=== PATIENT | female | born 1950 | race Caucasian/White ===

== ENCOUNTER 2019-05-08 05:38 | Inpatient (IN) ==
[2019-05-08] MEDS ORDERED: HEPARIN/NACL 0.9% 2 UNITS/ML 1,000 ML IV ONE (06:41)
[2019-05-08] MEDS ORDERED: LIDOCAINE 1% 20 ML VIAL ONE (06:41)
[2019-05-08] MEDS: SODIUM CHLORIDE 0.9% 1,000 ML IV SCH (07:00)
[2019-05-08] MEDS ORDERED: DIAZEPAM 5 MG TABLET ONE (08:12)
[2019-05-08] MEDS ORDERED: diphenhydrAMINE CAP 25 MG CAPSULE ONE (08:12)
[2019-05-08] MEDS ORDERED: POTASSIUM CHLORIDE RIDER 10 MEQ in PREMIX 1 EACH IV PRN (08:17)
[2019-05-08] MEDS ORDERED: ASPIRIN 325 MG TABLET PO ONE (08:17)
[2019-05-08] MEDS ORDERED: DIAZEPAM 5 MG TABLET PO ONE (08:17)
[2019-05-08] MEDS ORDERED: MAGNESIUM SULF RIDER 2 GM in PREMIX 1 EACH IV PRN (08:17)
[2019-05-08] MEDS ORDERED: diphenhydrAMINE CAP 25 MG CAPSULE PO ONE (08:17)
[2019-05-08] MEDS ORDERED: fentaNYL 100 MCG/2 ML VIAL ONE (08:30)
[2019-05-08] MEDS ORDERED: MIDAZOLAM 2 MG/2 ML VIAL ONE ×2 (08:30→10:25)
[2019-05-08 08:38] LABS: Albumin 3.2 G/DL (3.4-5.0); Bilirubin,Total 0.7 MG/DL (0.2-1.0); Calcium 8.3 MG/DL (8.5-10.1); Total Protein 8.3 G/DL (6.4-8.3)
[2019-05-08 08:57] LABS: Basophils # 0.1 10*3/uL (0.0-0.2); Basophils % 0.8 % (0.0-0.8); Eosinophils # 0.4 10*3/uL (0.0-0.87); Eosinophils % 3.2 % (0.00-10.9); Hematocrit 33.1 VOL% (35.7-47.0); Hemoglobin 9.9 GM/DL (12.0-16.0); Immature Granulocytes % 0.6 %; Immature Granulocytes Absolute 0.07 #; Lymphocytes # 1.1 10*3/uL (1.4-4.0); Lymphocytes % 9.4 % (21.3-54.2); Mean Corpuscular HGB Conc 29.9 GM/DL (32-36); Mean Corpuscular Volume 91.4 FL (87-102); Monocytes % 11.6 % (1.7-12.7); Neutrophils % 74.4 % (38.7-73.9); Platelet Count 210 T/CUMM (130-400); Red Blood Count 3.62 MC/CUMM (3.8-5.5); Red Cell Distribution Width 16.8 % (9.3-17.3); White Blood Count 11.4 T/CUMM (4-12)
[2019-05-08 09:01] LABS: INR 1.1; PT Patient Result 11.4 SECS (9.6-12.2)
[2019-05-08] MEDS ORDERED: ALBUTEROL 2.5 MG/3 ML NEB RESP TX PRN (11:19)
[2019-05-08] MEDS ORDERED: ZALEPLON 5 MG CAPSULE PO PRN (11:20)
[2019-05-08] MEDS ORDERED: ACETAMINOPHEN/CODEINE 300-30 MG TABLET PO PRN (11:20)
[2019-05-08] MEDS ORDERED: ONDANSETRON 4 MG/2 ML VIAL IV PRN (11:20)
[2019-05-08] MEDS ORDERED: ACETAMINOPHEN 325 MG TABLET PO PRN (11:20)
[2019-05-08] MEDS ORDERED: GLUCAGON 1 MG VIAL IM PRN (11:22)
[2019-05-08] MEDS ORDERED: DEXTROSE 50% 25 GM/50 ML VIAL IV PRN (11:22)
[2019-05-08] MEDS: INSULIN REGULAR 100 UNIT/ML SUBCUT SCH ×3 (13:59→22:28)
[2019-05-08] MEDS: INSULIN LISPRO 100 UNIT/ML SUBCUT SCH ×2 (15:05→17:54)
[2019-05-08] MEDS: hydrALAZINE 25 MG TABLET PO SCH ×2 (16:20→22:27)
[2019-05-08] MEDS ORDERED: FUROSEMIDE 40 MG TABLET PO SCH (21:00)
[2019-05-08] MEDS: INSULIN GLARGINE 100 UNIT/ML SUBCUT SCH (21:55)
[2019-05-08] MEDS: EZETIMIBE 10 MG TABLET PO SCH (21:55)
[2019-05-08] MEDS: levETIRAcetam 500 MG TABLET PO SCH (21:55)
[2019-05-08] MEDS: sitaGLIPtin 100 MG TABLET PO SCH (21:55)
[2019-05-08] MEDS: carvediloL 25 MG TABLET PO SCH (22:27)
[2019-05-09 05:43] LABS: Basophils # 0.1 10*3/uL (0.0-0.2); Basophils % 0.9 % (0.0-0.8); Eosinophils # 0.2 10*3/uL (0.0-0.87); Eosinophils % 2.3 % (0.00-10.9); Hematocrit 33.8 VOL% (35.7-47.0); Immature Granulocytes % 0.6 %; Immature Granulocytes Absolute 0.06 #; Lymphocytes # 0.7 10*3/uL (1.4-4.0); Mean Corpuscular HGB Conc 29.6 GM/DL (32-36); Mean Corpuscular Volume 93.1 FL (87-102); Mean Platelet Volume 11.9 FL (9.6-12.0); Monocytes % 10.2 % (1.7-12.7); Platelet Count 184 T/CUMM (130-400); Red Blood Count 3.63 MC/CUMM (3.8-5.5); Red Cell Distribution Width 16.7 % (9.3-17.3); White Blood Count 10.1 T/CUMM (4-12)
[2019-05-09] MEDS: LEVOTHYROXINE 100 MCG TABLET PO SCH (05:55)
[2019-05-09 06:12] LABS: Calcium 8.3 MG/DL (8.5-10.1); Osmolality,Calculated 285.4 MOS/KG (273-304); Risk Ratio 2.68; Thyroid Stimulating Hormone 4.45 uIU/ml (0.358-3.74); VLDL CHOLESTEROL 10.6 MG/DL
[2019-05-09] MEDS ORDERED: FUROSEMIDE 40 MG/4 ML VIAL IV ONE (08:49)
[2019-05-09] MEDS: INSULIN REGULAR 100 UNIT/ML SUBCUT SCH ×4 (09:08→22:04)
[2019-05-09] MEDS: OLMESARTAN 20 MG TABLET PO SCH (09:09)
[2019-05-09] MEDS: POTASSIUM CHLORIDE 8 MEQ CAPSULE PO SCH (09:09)
[2019-05-09] MEDS: INSULIN LISPRO 100 UNIT/ML SUBCUT SCH ×3 (09:09→16:22)
[2019-05-09] MEDS: ASCORBIC ACID 500 MG TABLET PO SCH (09:10)
[2019-05-09] MEDS: carvediloL 25 MG TABLET PO SCH (09:10)
[2019-05-09] MEDS: amLODIPine 5 MG TABLET PO SCH (09:10)
[2019-05-09] MEDS: ATORVASTATIN 20 MG TABLET PO SCH (09:10)
[2019-05-09] MEDS: hydrALAZINE 25 MG TABLET PO SCH ×3 (09:10→22:04)
[2019-05-09] MEDS: ASPIRIN 325 MG TABLET PO SCH (09:10)
[2019-05-09] MEDS: levETIRAcetam 500 MG TABLET PO SCH ×2 (09:16→20:58)
[2019-05-09] MEDS: SODIUM CHLORIDE 0.9% 1,000 ML IV SCH ×3 (09:16→16:20)
[2019-05-09] MEDS: FUROSEMIDE 40 MG/4 ML VIAL IV SCH (16:21)
[2019-05-09] MEDS: EZETIMIBE 10 MG TABLET PO SCH (20:53)
[2019-05-09] MEDS: sitaGLIPtin 100 MG TABLET PO SCH (20:53)
[2019-05-09] MEDS: carvediloL 12.5 MG TABLET PO SCH (22:04)
[2019-05-09] MEDS: INSULIN GLARGINE 100 UNIT/ML SUBCUT SCH (22:07)
[2019-05-10] MEDS: LEVOTHYROXINE 100 MCG TABLET PO SCH (06:18)
[2019-05-10 07:57] LABS: Basophils # 0.1 10*3/uL (0.0-0.2); Basophils % 0.6 % (0.0-0.8); Eosinophils # 0.4 10*3/uL (0.0-0.87); Eosinophils % 4.5 % (0.00-10.9); Hematocrit 33.2 VOL% (35.7-47.0); Hemoglobin 9.8 GM/DL (12.0-16.0); Immature Granulocytes % 0.6 %; Immature Granulocytes Absolute 0.05 #; Lymphocytes # 1.2 10*3/uL (1.4-4.0); Lymphocytes % 14.1 % (21.3-54.2); Mean Corpuscular HGB Conc 29.5 GM/DL (32-36); Mean Platelet Volume 12.5 FL (9.6-12.0); Monocytes % 11.2 % (1.7-12.7); Platelet Count 197 T/CUMM (130-400); Red Blood Count 3.61 MC/CUMM (3.8-5.5); Red Cell Distribution Width 16.5 % (9.3-17.3); White Blood Count 8.4 T/CUMM (4-12)
[2019-05-10 08:10] LABS: Osmolality,Calculated 285.4 MOS/KG (273-304)
[2019-05-10] MEDS: INSULIN LISPRO 100 UNIT/ML SUBCUT SCH ×3 (09:07→18:04)
[2019-05-10] MEDS: INSULIN REGULAR 100 UNIT/ML SUBCUT SCH ×4 (09:07→21:14)
[2019-05-10] MEDS: levETIRAcetam 500 MG TABLET PO SCH ×2 (09:08→21:15)
[2019-05-10] MEDS: amLODIPine 5 MG TABLET PO SCH (09:09)
[2019-05-10] MEDS: POTASSIUM CHLORIDE 8 MEQ CAPSULE PO SCH (09:09)
[2019-05-10] MEDS: FUROSEMIDE 40 MG/4 ML VIAL IV SCH ×2 (09:09→17:40)
[2019-05-10] MEDS: OLMESARTAN 20 MG TABLET PO SCH (09:09)
[2019-05-10] MEDS: ASPIRIN 325 MG TABLET PO SCH (09:09)
[2019-05-10] MEDS: hydrALAZINE 25 MG TABLET PO SCH ×3 (09:09→21:14)
[2019-05-10] MEDS: ATORVASTATIN 20 MG TABLET PO SCH (09:09)
[2019-05-10] MEDS: carvediloL 12.5 MG TABLET PO SCH ×2 (10:09→21:14)
[2019-05-10] MEDS: ASCORBIC ACID 500 MG TABLET PO SCH (10:09)
[2019-05-10] MEDS: EZETIMIBE 10 MG TABLET PO SCH (21:15)
[2019-05-10] MEDS: INSULIN GLARGINE 100 UNIT/ML SUBCUT SCH (21:15)
[2019-05-10] MEDS: sitaGLIPtin 100 MG TABLET PO SCH (21:15)
[2019-05-11 05:03] LABS: Basophils # 0.1 10*3/uL (0.0-0.2); Basophils % 0.8 % (0.0-0.8); Eosinophils # 0.4 10*3/uL (0.0-0.87); Eosinophils % 4.4 % (0.00-10.9); Hematocrit 31.3 VOL% (35.7-47.0); Hemoglobin 9.5 GM/DL (12.0-16.0); Immature Granulocytes % 0.4 %; Immature Granulocytes Absolute 0.04 #; Lymphocytes # 1.5 10*3/uL (1.4-4.0); Lymphocytes % 16.3 % (21.3-54.2); Mean Corpuscular HGB Conc 30.4 GM/DL (32-36); Mean Corpuscular Volume 89.9 FL (87-102); Mean Platelet Volume 12.9 FL (9.6-12.0); Monocytes % 16.5 % (1.7-12.7); Neutrophils % 61.6 % (38.7-73.9); Platelet Count 192 T/CUMM (130-400); Red Blood Count 3.48 MC/CUMM (3.8-5.5); Red Cell Distribution Width 16.8 % (9.3-17.3); White Blood Count 9.1 T/CUMM (4-12)
[2019-05-11 05:20] LABS: Calcium 8.4 MG/DL (8.5-10.1)
[2019-05-11 05:37] LABS: Lymphocytes 5 % (20-55); Metamyelocytes 2 %; Segmented Neutrophils 82 % (50-85); Total Cells Counted 100
[2019-05-11 05:38] LABS: Hypochromasia 1+; Microcytosis 1+; Platelet Estimate Adequate; Target Cells Few
[2019-05-11] MEDS: LEVOTHYROXINE 100 MCG TABLET PO SCH (06:18)
[2019-05-11] MEDS: INSULIN REGULAR 100 UNIT/ML SUBCUT SCH ×2 (08:45→13:31)
[2019-05-11] MEDS: levETIRAcetam 500 MG TABLET PO SCH (08:46)
[2019-05-11] MEDS: carvediloL 12.5 MG TABLET PO SCH (08:46)
[2019-05-11] MEDS: ASPIRIN 325 MG TABLET PO SCH (08:46)
[2019-05-11] MEDS: OLMESARTAN 20 MG TABLET PO SCH (08:46)
[2019-05-11] MEDS: amLODIPine 5 MG TABLET PO SCH (08:46)
[2019-05-11] MEDS: hydrALAZINE 25 MG TABLET PO SCH (08:46)
[2019-05-11] MEDS: ATORVASTATIN 20 MG TABLET PO SCH (08:46)
[2019-05-11] MEDS: ASCORBIC ACID 500 MG TABLET PO SCH (08:47)
[2019-05-11] MEDS: POTASSIUM CHLORIDE 8 MEQ CAPSULE PO SCH (08:47)
[2019-05-11] MEDS: FUROSEMIDE 40 MG/4 ML VIAL IV SCH (08:47)
[2019-05-11] MEDS: INSULIN LISPRO 100 UNIT/ML SUBCUT SCH ×2 (08:48→13:32)
[2019-05-11 12:04] VITALS: BP 131/54
== END 2019-05-11 16:30 | disposition home or self-care (01) | DRG 287 ==
LOC: N.CL 05:38 → N.TELES 13:46
PROVIDERS: ADMIT Internal Medicine Cardiovascular Disease; ATTEND Internal Medicine Cardiovascular Disease

== ENCOUNTER 2019-12-07 11:26 | Inpatient (IN) ==
[2019-12-07] MEDS ORDERED: SODIUM CHLORIDE 0.9% 500 ML IV STA (12:27)
[2019-12-07] MEDS ORDERED: VANCOMYCIN INJ 1,500 MG in SODIUM CHLORIDE 0.9% 250 ML IV STA (12:27)
[2019-12-07] MEDS ORDERED: PIPERACILLIN/TAZOBACTAM 3,375 MG in SODIUM CHLORIDE 0.9% 100 ML IV STA (12:27)
[2019-12-07] MEDS ORDERED: VANCOMYCIN INJ 1,500 MG in SODIUM CHLORIDE 0.9% 500 ML IV STA (12:36)
[2019-12-07 12:38] LABS: Basophils % 0.3 % (0.0-0.8); Eosinophils # 0.3 10*3/uL (0.0-0.87); Eosinophils % 2.1 % (0.00-10.9); Hematocrit 33.9 VOL% (35.7-47.0); Hemoglobin 10.3 GM/DL (12.0-16.0); Immature Granulocytes % 1.6 %; Lymphocytes % 8.1 % (21.3-54.2); Mean Corpuscular HGB Conc 30.4 GM/DL (32-36); Mean Corpuscular Volume 99.4 FL (87-102); Monocytes % 14.5 % (1.7-12.7); NRBC # 0.02 10*3/uL; Neutrophils % 73.4 % (38.7-73.9); Platelet Count 234 T/CUMM (130-400); Red Blood Count 3.41 MC/CUMM (3.8-5.5); Red Cell Distribution Width 15.8 % (9.3-17.3); White Blood Count 12.3 T/CUMM (4-12)
[2019-12-07 13:16] LABS: Albumin 2.6 G/DL (3.4-5.0); Bilirubin,Total 0.4 MG/DL (0.2-1.0); Calcium 8.1 MG/DL (8.5-10.1); Total Protein 6.7 G/DL (6.4-8.3)
[2019-12-07] MEDS ORDERED: ALBUTEROL 2.5 MG/3 ML NEB RESP TX PRN (14:17)
[2019-12-07] MEDS ORDERED: DEXTROSE 10% 250 ML BAG IV PRN (14:24)
[2019-12-07] MEDS ORDERED: DEXTROSE 50% 25 GM/50 ML VIAL IV PRN (14:24)
[2019-12-07] MEDS ORDERED: GLUCAGON 1 MG VIAL IM PRN ×2 (14:24)
[2019-12-07] MEDS ORDERED: ACETAMINOPHEN 325 MG TABLET PO PRN (14:24)
[2019-12-07] MEDS ORDERED: ONDANSETRON 4 MG/2 ML VIAL IV PRN (14:24)
[2019-12-07] MEDS ORDERED: INSULIN LISPRO 100 UNIT/ML SUBCUT SCH (16:30)
[2019-12-07] MEDS: INSULIN LISPRO 100 UNIT/ML SUBCUT SCH ×2 (17:41→22:03)
[2019-12-07] MEDS: INSULIN GLARGINE 100 UNIT/ML SUBCUT SCH (18:21)
[2019-12-07] MEDS: FUROSEMIDE 40 MG TABLET PO SCH (18:21)
[2019-12-07] MEDS: PIPERACILLIN/TAZOBACTAM 3,375 MG in SODIUM CHLORIDE 0.9% 100 ML IV SCH (22:02)
[2019-12-07] MEDS: EZETIMIBE 10 MG TABLET PO SCH (22:03)
[2019-12-07] MEDS: levETIRAcetam 500 MG TABLET PO SCH (22:03)
[2019-12-07] MEDS: FERROUS SULFATE 325 MG TABLET PO SCH (22:03)
[2019-12-07] MEDS: carvediloL 25 MG TABLET PO SCH (22:03)
[2019-12-07] MEDS: ENOXAPARIN 40 MG/0.4 ML SYRINGE SUBCUT SCH (22:04)
[2019-12-08] MEDS: PIPERACILLIN/TAZOBACTAM 3,375 MG in SODIUM CHLORIDE 0.9% 100 ML IV SCH ×3 (04:55→21:35)
[2019-12-08 06:35] LABS: Basophils # 0.1 10*3/uL (0.0-0.2); Basophils % 0.5 % (0.0-0.8); Eosinophils # 0.6 10*3/uL (0.0-0.87); Eosinophils % 6.8 % (0.00-10.9); Hematocrit 32.4 VOL% (35.7-47.0); Hemoglobin 9.6 GM/DL (12.0-16.0); Immature Granulocytes % 1.5 %; Immature Granulocytes Absolute 0.14 #; Lymphocytes # 1.3 10*3/uL (1.4-4.0); Lymphocytes % 14.3 % (21.3-54.2); Mean Corpuscular HGB Conc 29.6 GM/DL (32-36); Mean Corpuscular Volume 101.3 FL (87-102); Mean Platelet Volume 11.6 FL (9.6-12.0); Monocytes % 12.4 % (1.7-12.7); NRBC # 0.03 10*3/uL; Neutrophils % 64.5 % (38.7-73.9); Platelet Count 211 T/CUMM (130-400); Red Cell Distribution Width 15.8 % (9.3-17.3); White Blood Count 9.3 T/CUMM (4-12)
[2019-12-08 07:53] LABS: Bilirubin,Total 0.6 MG/DL (0.2-1.0); Osmolality,Calculated 289.7 MOS/KG (273-304); Total Protein 6.1 G/DL (6.4-8.3)
[2019-12-08] MEDS: INSULIN LISPRO 100 UNIT/ML SUBCUT SCH ×4 (08:00→21:39)
[2019-12-08] MEDS: FUROSEMIDE 40 MG TABLET PO SCH ×2 (09:46→18:37)
[2019-12-08] MEDS: ASPIRIN 325 MG TABLET PO SCH (09:46)
[2019-12-08] MEDS: FERROUS SULFATE 325 MG TABLET PO SCH ×2 (09:46→21:44)
[2019-12-08] MEDS: OLMESARTAN 20 MG TABLET PO SCH (09:46)
[2019-12-08] MEDS: carvediloL 25 MG TABLET PO SCH ×2 (09:46→21:51)
[2019-12-08] MEDS: ATORVASTATIN 20 MG TABLET PO SCH (09:46)
[2019-12-08] MEDS: ASCORBIC ACID 500 MG TABLET PO SCH (09:46)
[2019-12-08] MEDS: LEVOTHYROXINE 100 MCG TABLET PO SCH (09:46)
[2019-12-08] MEDS: POTASSIUM CHLORIDE 8 MEQ CAPSULE PO SCH (09:46)
[2019-12-08] MEDS: levETIRAcetam 500 MG TABLET PO SCH ×2 (09:46→21:45)
[2019-12-08] MEDS: VANCOMYCIN INJ 1,500 MG in SODIUM CHLORIDE 0.9% 500 ML IV SCH (17:06)
[2019-12-08] MEDS: INSULIN GLARGINE 100 UNIT/ML SUBCUT SCH (17:06)
[2019-12-08] MEDS: ENOXAPARIN 40 MG/0.4 ML SYRINGE SUBCUT SCH (21:41)
[2019-12-08] MEDS: EZETIMIBE 10 MG TABLET PO SCH (21:43)
[2019-12-09] MEDS: PIPERACILLIN/TAZOBACTAM 3,375 MG in SODIUM CHLORIDE 0.9% 100 ML IV SCH ×3 (05:12→21:14)
[2019-12-09] MEDS ORDERED: LIDOCAINE 1% 20 ML VIAL ONE (06:37)
[2019-12-09 07:13] LABS: Basophils # 0.1 10*3/uL (0.0-0.2); Basophils % 0.6 % (0.0-0.8); Eosinophils # 0.7 10*3/uL (0.0-0.87); Eosinophils % 6.8 % (0.00-10.9); Hematocrit 30.4 VOL% (35.7-47.0); Hemoglobin 9.1 GM/DL (12.0-16.0); Immature Granulocytes % 1.9 %; Immature Granulocytes Absolute 0.18 #; Lymphocytes # 1.4 10*3/uL (1.4-4.0); Lymphocytes % 14.5 % (21.3-54.2); Mean Corpuscular HGB Conc 29.9 GM/DL (32-36); Mean Corpuscular Volume 98.7 FL (87-102); Mean Platelet Volume 11.1 FL (9.6-12.0); Monocytes % 12.8 % (1.7-12.7); NRBC # 0.05 10*3/uL; Neutrophils % 63.4 % (38.7-73.9); Platelet Count 212 T/CUMM (130-400); Red Blood Count 3.08 MC/CUMM (3.8-5.5); Red Cell Distribution Width 15.5 % (9.3-17.3); White Blood Count 9.6 T/CUMM (4-12)
[2019-12-09] MEDS ORDERED: LACTATED RINGERS 1,000 ML IV SCH (07:30)
[2019-12-09 07:48] LABS: Calcium 7.9 MG/DL (8.5-10.1); Osmolality,Calculated 292.6 MOS/KG (273-304)
[2019-12-09] MEDS ORDERED: LIDOCAINE 2% 5 ML VIAL ONE (08:06)
[2019-12-09] MEDS ORDERED: propofoL 200 MG/20 ML VIAL IV ONE (08:06)
[2019-12-09] MEDS ORDERED: fentaNYL 100 MCG/2 ML VIAL ONE (08:07)
[2019-12-09] MEDS ORDERED: ONDANSETRON 4 MG/2 ML VIAL ONE (08:07)
[2019-12-09] MEDS ORDERED: MIDAZOLAM 2 MG/2 ML VIAL ONE (08:07)
[2019-12-09] MEDS: ASPIRIN 325 MG TABLET PO SCH (10:02)
[2019-12-09] MEDS: POTASSIUM CHLORIDE 8 MEQ CAPSULE PO SCH (10:03)
[2019-12-09] MEDS: levETIRAcetam 500 MG TABLET PO SCH ×2 (10:03→21:03)
[2019-12-09] MEDS: FUROSEMIDE 40 MG TABLET PO SCH ×2 (10:04→18:38)
[2019-12-09] MEDS: ASCORBIC ACID 500 MG TABLET PO SCH (10:04)
[2019-12-09] MEDS: ATORVASTATIN 20 MG TABLET PO SCH (10:04)
[2019-12-09] MEDS: FERROUS SULFATE 325 MG TABLET PO SCH ×2 (10:04→21:03)
[2019-12-09] MEDS: LEVOTHYROXINE 100 MCG TABLET PO SCH (10:05)
[2019-12-09] MEDS: INSULIN LISPRO 100 UNIT/ML SUBCUT SCH ×4 (10:06→21:13)
[2019-12-09] MEDS: OLMESARTAN 20 MG TABLET PO SCH (10:06)
[2019-12-09] MEDS: carvediloL 25 MG TABLET PO SCH ×2 (10:06→21:03)
[2019-12-09] MEDS ORDERED: DEXTROSE 50% 25 GM/50 ML VIAL IV PRN (11:32)
[2019-12-09] MEDS ORDERED: GLUCAGON 1 MG VIAL IM PRN (11:32)
[2019-12-09] MEDS: INSULIN GLARGINE 100 UNIT/ML SUBCUT SCH (16:52)
[2019-12-09] MEDS: VANCOMYCIN INJ 1,500 MG in SODIUM CHLORIDE 0.9% 500 ML IV SCH (18:25)
[2019-12-09] MEDS: EZETIMIBE 10 MG TABLET PO SCH (21:02)
[2019-12-09] MEDS: ENOXAPARIN 40 MG/0.4 ML SYRINGE SUBCUT SCH (21:13)
[2019-12-10] MEDS: PIPERACILLIN/TAZOBACTAM 3,375 MG in SODIUM CHLORIDE 0.9% 100 ML IV SCH ×3 (04:21→21:38)
[2019-12-10 06:21] LABS: Basophils # 0.1 10*3/uL (0.0-0.2); Basophils % 0.7 % (0.0-0.8); Eosinophils # 0.7 10*3/uL (0.0-0.87); Eosinophils % 6.6 % (0.00-10.9); Hematocrit 30.6 VOL% (35.7-47.0); Hemoglobin 9.1 GM/DL (12.0-16.0); Immature Granulocytes % 3.2 %; Immature Granulocytes Absolute 0.33 #; Lymphocytes # 1.8 10*3/uL (1.4-4.0); Lymphocytes % 17.6 % (21.3-54.2); Mean Corpuscular HGB Conc 29.7 GM/DL (32-36); Mean Corpuscular Volume 99.7 FL (87-102); Monocytes % 12.5 % (1.7-12.7); NRBC # 0.03 10*3/uL; Neutrophils % 59.4 % (38.7-73.9); Platelet Count 220 T/CUMM (130-400); Red Blood Count 3.07 MC/CUMM (3.8-5.5); Red Cell Distribution Width 15.4 % (9.3-17.3); White Blood Count 10.2 T/CUMM (4-12)
[2019-12-10 06:44] LABS: Calcium 7.9 MG/DL (8.5-10.1); Osmolality,Calculated 289.8 MOS/KG (273-304)
[2019-12-10] MEDS: INSULIN LISPRO 100 UNIT/ML SUBCUT SCH ×4 (07:56→22:24)
[2019-12-10] MEDS: ASPIRIN 325 MG TABLET PO SCH (09:20)
[2019-12-10] MEDS: levETIRAcetam 500 MG TABLET PO SCH ×2 (09:21→21:27)
[2019-12-10] MEDS: carvediloL 25 MG TABLET PO SCH ×2 (09:21→21:28)
[2019-12-10] MEDS: POTASSIUM CHLORIDE 8 MEQ CAPSULE PO SCH (09:21)
[2019-12-10] MEDS: OLMESARTAN 20 MG TABLET PO SCH (09:21)
[2019-12-10] MEDS: ATORVASTATIN 20 MG TABLET PO SCH (09:21)
[2019-12-10] MEDS: FERROUS SULFATE 325 MG TABLET PO SCH ×2 (09:22→21:28)
[2019-12-10] MEDS: LEVOTHYROXINE 100 MCG TABLET PO SCH (09:22)
[2019-12-10] MEDS: FUROSEMIDE 40 MG TABLET PO SCH ×2 (09:22→19:29)
[2019-12-10] MEDS: ASCORBIC ACID 500 MG TABLET PO SCH (09:22)
[2019-12-10] MEDS: INSULIN GLARGINE 100 UNIT/ML SUBCUT SCH (17:07)
[2019-12-10] MEDS ORDERED: VANCOMYCIN INJ 1,500 MG in SODIUM CHLORIDE 0.9% 500 ML IV SCH (18:00)
[2019-12-10] MEDS: EZETIMIBE 10 MG TABLET PO SCH (21:27)
[2019-12-10] MEDS: ENOXAPARIN 40 MG/0.4 ML SYRINGE SUBCUT SCH (21:27)
[2019-12-11] MEDS: PIPERACILLIN/TAZOBACTAM 3,375 MG in SODIUM CHLORIDE 0.9% 100 ML IV SCH ×2 (04:14→13:53)
[2019-12-11 06:59] LABS: Basophils # 0.1 10*3/uL (0.0-0.2); Basophils % 0.4 % (0.0-0.8); Eosinophils # 0.6 10*3/uL (0.0-0.87); Eosinophils % 4.2 % (0.00-10.9); Hemoglobin 8.9 GM/DL (12.0-16.0); Immature Granulocytes Absolute 0.41 #; Lymphocytes # 1.8 10*3/uL (1.4-4.0); Lymphocytes % 12.9 % (21.3-54.2); Mean Corpuscular HGB Conc 29.7 GM/DL (32-36); Mean Corpuscular Volume 99.3 FL (87-102); Mean Platelet Volume 11.2 FL (9.6-12.0); Monocytes % 10.7 % (1.7-12.7); NRBC # 0.02 10*3/uL; Neutrophils % 68.8 % (38.7-73.9); Platelet Count 223 T/CUMM (130-400); Red Blood Count 3.02 MC/CUMM (3.8-5.5); Red Cell Distribution Width 15.4 % (9.3-17.3); White Blood Count 13.7 T/CUMM (4-12)
[2019-12-11 07:19] LABS: Calcium 8.1 MG/DL (8.5-10.1); Osmolality,Calculated 292.7 MOS/KG (273-304)
[2019-12-11] MEDS: INSULIN LISPRO 100 UNIT/ML SUBCUT SCH ×2 (09:53→12:33)
[2019-12-11] MEDS: OLMESARTAN 20 MG TABLET PO SCH ×2 (09:54→11:23)
[2019-12-11] MEDS: ATORVASTATIN 20 MG TABLET PO SCH (09:54)
[2019-12-11] MEDS: ASPIRIN 325 MG TABLET PO SCH (09:54)
[2019-12-11] MEDS: carvediloL 25 MG TABLET PO SCH ×2 (09:55→11:23)
[2019-12-11] MEDS: FUROSEMIDE 40 MG TABLET PO SCH ×2 (09:55→11:23)
[2019-12-11] MEDS: ASCORBIC ACID 500 MG TABLET PO SCH (09:55)
[2019-12-11] MEDS: FERROUS SULFATE 325 MG TABLET PO SCH (09:55)
[2019-12-11] MEDS: LEVOTHYROXINE 100 MCG TABLET PO SCH (09:55)
[2019-12-11] MEDS: POTASSIUM CHLORIDE 8 MEQ CAPSULE PO SCH (09:55)
[2019-12-11] MEDS: levETIRAcetam 500 MG TABLET PO SCH (12:12)
[2019-12-11 12:43] VITALS: BP 150/40
[2019-12-12] MEDS ORDERED: VANCOMYCIN INJ 1,500 MG in SODIUM CHLORIDE 0.9% 500 ML IV SCH (10:00)
== END 2019-12-11 16:10 | disposition home health service (06) | DRG 988 ==
LOC: EDSEX → EDUNIT# → EDBD → N.ED 11:26 → N.EDINP 14:24 → N.3E 14:41
PROVIDERS: ADMIT Internal Medicine; ATTEND Internal Medicine

== ENCOUNTER 2020-02-07 14:56 | Inpatient (IN) ==
[2020-02-07] MEDS ORDERED: methylPREDNISolone SOD SUC 125 MG/2 ML VIAL IV STA (15:06)
[2020-02-07] MEDS ORDERED: cefTRIAXone 1,000 MG in SODIUM CHLORIDE 0.9% 100 ML IV STA (15:06)
[2020-02-07] MEDS ORDERED: AZITHROMYCIN INJ 500 MG in SODIUM CHLORIDE 0.9% 250 ML IV STA (15:06)
[2020-02-07] MEDS ORDERED: ALBUTEROL NEB SOLN 5 MG/ML 20 ML/BOTTLE ONE (15:15)
[2020-02-07] MEDS ORDERED: ETOMIDATE 20 MG/10 ML VIAL IV ONE (15:27)
[2020-02-07] MEDS ORDERED: ROCURONIUM 100 MG/10 ML VIAL IV ONE (15:28)
[2020-02-07] MEDS ORDERED: ALBUTEROL NEB SOLN 5 MG/ML 20 ML/BOTTLE CONT NEB SCH (15:30)
[2020-02-07 15:39] LABS: Basophils # 0.1 10*3/uL (0.0-0.2); Basophils % 0.6 % (0.0-0.8); Eosinophils # 0.8 10*3/uL (0.0-0.87); Eosinophils % 5.7 % (0.00-10.9); Hematocrit 33.1 VOL% (35.7-47.0); Hemoglobin 9.4 GM/DL (12.0-16.0); Immature Granulocytes Absolute 0.15 #; Lymphocytes # 2.7 10*3/uL (1.4-4.0); Lymphocytes % 18.3 % (21.3-54.2); Mean Corpuscular HGB Conc 28.4 GM/DL (32-36); Mean Corpuscular Volume 100.9 FL (87-102); Mean Platelet Volume 11.7 FL (9.6-12.0); Monocytes % 10.7 % (1.7-12.7); NRBC # 0.02 10*3/uL; Neutrophils % 63.7 % (38.7-73.9); Platelet Count 170 T/CUMM (130-400); Red Blood Count 3.28 MC/CUMM (3.8-5.5); Red Cell Distribution Width 17.2 % (9.3-17.3); White Blood Count 14.7 T/CUMM (4-12)
[2020-02-07 15:49] LABS: Alanine Aminotransferase 14 U/L (13-56); Albumin 2.6 G/DL (3.4-5.0); Alkaline Phosphatase 89 U/L (45-117); Aspartate Amino Transferase 19 U/L (0-37); Blood Urea Nitrogen 14 MG/DL (7-18); Calcium 8.2 MG/DL (8.5-10.1); Estimated Glom Filtration Rate 48 ML/MIN; Ferritin 79.8 ng/ml (8-252); Glucose 257 MG/DL (74-106); Osmolality,Calculated 290.3 MOS/KG (273-304); Total Protein 7.6 G/DL (6.4-8.3)
[2020-02-07 15:52] LABS: Troponin I 0.054 NG/ML (0.00-0.045)
[2020-02-07 16:00] LABS: ABG HCO3 24.4 MMOL/L (20-26); ABG Oxygen Saturation 99.2 % (95-100); ABG TCO2 29.5 MMOL/L (23-27)
[2020-02-07] MEDS ORDERED: FUROSEMIDE 40 MG/4 ML VIAL IV STA (16:02)
[2020-02-07 16:11] LABS: ABG PCO2 87.9 MM HG (35-48); ABG PH 7.156 (7.35-7.45)
[2020-02-07] MEDS ORDERED: ONDANSETRON 4 MG/2 ML VIAL IV PRN (16:39)
[2020-02-07] MEDS: TERBUTALINE 1 MG/1 ML VIAL SUBCUT SCH (16:39)
[2020-02-07] MEDS ORDERED: ACETAMINOPHEN 325 MG TABLET PO PRN (16:39)
[2020-02-07] MEDS ORDERED: GLUCAGON 1 MG VIAL IM PRN (16:43)
[2020-02-07] MEDS ORDERED: DEXTROSE 10% 250 ML BAG IV PRN (16:43)
[2020-02-07] MEDS ORDERED: LORazepam 2 MG/1 ML VIAL IV PRN (16:59)
[2020-02-07 17:12] LABS: ABG Base Excess 2.1 MMOL/L (-2.5-2.5); ABG HCO3 26.3 MMOL/L (20-26); ABG Oxygen Saturation 99.3 % (95-100); ABG PH 7.257 (7.35-7.45); ABG TCO2 28.7 MMOL/L (23-27)
[2020-02-07 17:14] LABS: ABG PCO2 69.6 MM HG (35-48)
[2020-02-07 17:30] LABS: Apearance,Urine Slightly Hazy (Clear); Bilirubin,Urine Negative (Negative); Blood, Urine Small mg/dL (Negative); Glucose,Urine (UA) 50 mg/dL (Negative); Hyaline Casts,Urine 5 /LPF (0-3); Ketones,Urine Negative (Negative); Mucus,Urine Occasional /LPF (Occasional); Nitrite,Urine Negative (Negative); Protein,Urine 30 MG/DL; RBC,Urine 2 /HPF (0-4); Squamous Epithelial Cell,Urine Occasional /HPF (0-10); Urine Color Yellow (Yellow); Urine Specific Gravity 1.009 (1.001-1.035); Urine Urobilinogen < 2.0 EU/DL (0.2-1.0); WBC,Urine 24 /HPF (0-6)
[2020-02-07 17:37] LABS: INR 1.1; PT Patient Result 11.2 SECS (9.8-11.9); Partial Thromboplastin Time 24.5 SECS (23.9-33.8)
[2020-02-07] MEDS: predniSONE 20 MG TABLET PO SCH (18:39)
[2020-02-07] MEDS: PANTOPRAZOLE 40 MG VIAL IV SCH (18:39)
[2020-02-07] MEDS: FUROSEMIDE 40 MG/4 ML VIAL IV SCH (18:39)
[2020-02-07] MEDS: INSULIN REGULAR 100 UNIT/ML SUBCUT SCH (18:40)
[2020-02-07 19:36] LABS: Allen Test Positive; Pt O2 Delivery Device Ventilator
[2020-02-07 19:37] LABS: ABG Base Excess 4.9 MMOL/L (-2.5-2.5); ABG HCO3 30.4 MMOL/L (20-26); ABG Oxygen Saturation 96.7 % (95-100); ABG PCO2 50.1 MM HG (35-48); ABG PH 7.401 (7.35-7.45); ABG PO2 87.1 MM HG (80-95); ABG TCO2 31.9 MMOL/L (23-27)
[2020-02-07 20:56] LABS: ABG Base Excess 5.6 MMOL/L (-2.5-2.5); ABG HCO3 31.8 MMOL/L (20-26); ABG Oxygen Saturation 98.4 % (95-100); ABG PCO2 55.2 MM HG (35-48); ABG PH 7.378 (7.35-7.45); ABG PO2 119.4 MM HG (80-95); ABG TCO2 33.5 MMOL/L (23-27); Allen Test Positive; Pt O2 Delivery Device Ventilator
[2020-02-07] MEDS ORDERED: ENOXAPARIN 40 MG/0.4 ML SYRINGE SUBCUT SCH (21:00)
[2020-02-07] MEDS ORDERED: carvediloL 25 MG TABLET PO SCH (21:00)
[2020-02-07] MEDS: FLUCONAZOLE INJ 100 MG in IV BAG 1 EACH IV SCH (23:39)
[2020-02-07] MEDS: EZETIMIBE 10 MG TABLET PO SCH (23:55)
[2020-02-07] MEDS: levETIRAcetam 500 MG TABLET PO SCH (23:55)
[2020-02-07] MEDS: FERROUS SULFATE 325 MG TABLET PO SCH (23:55)
[2020-02-08] MEDS ORDERED: ENOXAPARIN 60 MG/0.6 ML SYRINGE SUBCUT ONE (01:33)
[2020-02-08] MEDS: FUROSEMIDE 40 MG/4 ML VIAL IV SCH ×3 (02:03→16:18)
[2020-02-08 03:22] LABS: Risk Ratio 2.75; VLDL CHOLESTEROL 164.4 MG/DL
[2020-02-08 03:23] LABS: Basophils % 0.2 % (0.0-0.8); Hematocrit 26.3 VOL% (35.7-47.0); Hemoglobin 10.4 GM/DL (12.0-16.0); Immature Granulocytes % 0.9 %; Immature Granulocytes Absolute 0.12 #; Lymphocytes # 0.4 10*3/uL (1.4-4.0); Mean Corpuscular HGB Conc 39.5 GM/DL (32-36); Mean Corpuscular Volume 101.5 FL (87-102); Mean Platelet Volume 12.2 FL (9.6-12.0); Monocytes % 1.1 % (1.7-12.7); NRBC # 0.05 10*3/uL; Neutrophils % 94.8 % (38.7-73.9); Platelet Count 329 T/CUMM (130-400); Red Blood Count 2.59 MC/CUMM (3.8-5.5); Red Cell Distribution Width 15.9 % (9.3-17.3); White Blood Count 13.1 T/CUMM (4-12)
[2020-02-08 03:40] LABS: Osmolality,Calculated 289.5 MOS/KG (273-304)
[2020-02-08] MEDS: INSULIN REGULAR 100 UNIT/ML SUBCUT SCH ×4 (03:48→18:18)
[2020-02-08 04:43] LABS: ABG Base Excess 10.2 MMOL/L (-2.5-2.5); ABG HCO3 34.8 MMOL/L (20-26); ABG PCO2 47.6 MM HG (35-48); ABG PH 7.482 (7.35-7.45); ABG PO2 112.9 MM HG (80-95); ABG TCO2 36.3 MMOL/L (23-27); Allen Test Positive; Pt O2 Delivery Device Ventilator
[2020-02-08] MEDS: LEVOTHYROXINE 100 MCG TABLET PO SCH (06:57)
[2020-02-08] MEDS: carvediloL 12.5 MG TABLET PO SCH ×2 (07:46→16:18)
[2020-02-08] MEDS ORDERED: ASPIRIN 325 MG TABLET PO SCH (09:00)
[2020-02-08] MEDS: FERROUS SULFATE 325 MG TABLET PO SCH ×2 (09:06→21:57)
[2020-02-08] MEDS: ATORVASTATIN 20 MG TABLET PO SCH (09:06)
[2020-02-08] MEDS: ENOXAPARIN 100 MG/ML SYRINGE SUBCUT SCH ×2 (09:06→21:58)
[2020-02-08] MEDS: levETIRAcetam 500 MG TABLET PO SCH ×2 (09:06→21:57)
[2020-02-08] MEDS: predniSONE 20 MG TABLET PO SCH (09:09)
[2020-02-08 09:50] LABS: CKMB % 6.9 %
[2020-02-08 09:52] LABS: Troponin I 10.6 NG/ML (0.00-0.045)
[2020-02-08 10:38] LABS: Band Neutrophils 2 % (0-10); Lymphocytes 3 % (20-55); Segmented Neutrophils 92 % (50-85); Total Cells Counted 100
[2020-02-08 10:39] LABS: Platelet Estimate Normal; Polychromasia Slight
[2020-02-08] MEDS: INSULIN GLARGINE 100 UNIT/ML SUBCUT SCH (14:08)
[2020-02-08] MEDS ORDERED: cefTRIAXone 1,000 MG in SYRINGE 1 EACH IV SCH (16:00)
[2020-02-08] MEDS: PANTOPRAZOLE 40 MG VIAL IV SCH (16:52)
[2020-02-08] MEDS: AZITHROMYCIN INJ 500 MG in SODIUM CHLORIDE 0.9% 250 ML IV SCH (17:45)
[2020-02-08] MEDS ORDERED: ASPIRIN EC 81 MG TABLET PO SCH (18:16)
[2020-02-08] MEDS: FLUCONAZOLE INJ 100 MG in IV BAG 1 EACH IV SCH (20:29)
[2020-02-08] MEDS: EZETIMIBE 10 MG TABLET PO SCH (21:57)
[2020-02-08] MEDS: POTASSIUM CHLORIDE 20 MEQ/15 ML UDCUP PER TUBE SCH (21:57)
[2020-02-09] MEDS: FUROSEMIDE 40 MG/4 ML VIAL IV SCH ×3 (01:47→21:41)
[2020-02-09] MEDS: INSULIN REGULAR 100 UNIT/ML SUBCUT SCH ×4 (01:55→17:19)
[2020-02-09 06:45] LABS: Basophils % 0.1 % (0.0-0.8); Hematocrit 28.2 VOL% (35.7-47.0); Hemoglobin 8.7 GM/DL (12.0-16.0); Immature Granulocytes % 0.8 %; Immature Granulocytes Absolute 0.17 #; Lymphocytes # 1.5 10*3/uL (1.4-4.0); Lymphocytes % 7.4 % (21.3-54.2); Mean Corpuscular HGB Conc 30.9 GM/DL (32-36); Mean Corpuscular Volume 93.1 FL (87-102); Mean Platelet Volume 11.7 FL (9.6-12.0); Monocytes % 7.2 % (1.7-12.7); NRBC # 0.02 10*3/uL; Neutrophils % 84.5 % (38.7-73.9); Platelet Count 302 T/CUMM (130-400); Red Blood Count 3.03 MC/CUMM (3.8-5.5); Red Cell Distribution Width 17.3 % (9.3-17.3); White Blood Count 20.2 T/CUMM (4-12)
[2020-02-09 07:04] LABS: Calcium 7.8 MG/DL (8.5-10.1)
[2020-02-09] MEDS: LEVOTHYROXINE 100 MCG TABLET PO SCH (07:12)
[2020-02-09] MEDS: ENOXAPARIN 30 MG/0.3 ML SYRINGE SUBCUT SCH (09:30)
[2020-02-09] MEDS: INSULIN GLARGINE 100 UNIT/ML SUBCUT SCH (09:30)
[2020-02-09] MEDS: predniSONE 20 MG TABLET PO SCH (09:30)
[2020-02-09] MEDS: levETIRAcetam 500 MG TABLET PO SCH ×2 (09:30→21:39)
[2020-02-09] MEDS: FERROUS SULFATE 325 MG TABLET PO SCH ×2 (09:30→21:40)
[2020-02-09] MEDS: ATORVASTATIN 20 MG TABLET PO SCH (09:30)
[2020-02-09] MEDS: CEFEPIME 1,000 MG in SODIUM CHLORIDE 0.9% 100 ML IV SCH ×2 (09:30→17:19)
[2020-02-09] MEDS: POTASSIUM CHLORIDE 20 MEQ/15 ML UDCUP PER TUBE SCH ×2 (09:30→21:40)
[2020-02-09 12:01] LABS: Hypochromasia 1+; Lymphocytes 4 % (20-55); Metamyelocytes 1 %; Platelet Estimate Normal; Polychromasia Slight; Segmented Neutrophils 91 % (50-85); Total Cells Counted 100
[2020-02-09] MEDS: PANTOPRAZOLE 40 MG VIAL IV SCH (17:19)
[2020-02-09] MEDS: AZITHROMYCIN INJ 500 MG in SODIUM CHLORIDE 0.9% 250 ML IV SCH (17:46)
[2020-02-09] MEDS: FLUCONAZOLE INJ 100 MG in IV BAG 1 EACH IV SCH (20:28)
[2020-02-09] MEDS: EZETIMIBE 10 MG TABLET PO SCH (21:40)
[2020-02-10] MEDS: INSULIN REGULAR 100 UNIT/ML SUBCUT SCH ×5 (01:31→23:58)
[2020-02-10] MEDS: CEFEPIME 1,000 MG in SODIUM CHLORIDE 0.9% 100 ML IV SCH ×3 (01:37→18:02)
[2020-02-10 04:55] LABS: ABG Base Excess 13.3 MMOL/L (-2.5-2.5); ABG HCO3 36.7 MMOL/L (20-26); ABG Oxygen Saturation 98.9 % (95-100); ABG PCO2 41.7 MM HG (35-48); ABG PH 7.562 (7.35-7.45); ABG TCO2 37.9 MMOL/L (23-27); Allen Test Positive; Pt O2 Delivery Device Ventilator
[2020-02-10] MEDS: LEVOTHYROXINE 100 MCG TABLET PO SCH (06:09)
[2020-02-10 06:59] LABS: Prealbumin 12.2 MG/DL (20-40)
[2020-02-10 09:44] LABS: Basophils % 0.2 % (0.0-0.8); Eosinophils # 0.2 10*3/uL (0.0-0.87); Eosinophils % 1.1 % (0.00-10.9); Hematocrit 27.6 VOL% (35.7-47.0); Hemoglobin 8.4 GM/DL (12.0-16.0); Immature Granulocytes % 1.2 %; Immature Granulocytes Absolute 0.18 #; Lymphocytes # 2.9 10*3/uL (1.4-4.0); Lymphocytes % 19.1 % (21.3-54.2); Mean Corpuscular HGB Conc 30.4 GM/DL (32-36); Mean Corpuscular Volume 94.5 FL (87-102); Mean Platelet Volume 11.6 FL (9.6-12.0); NRBC # 0.04 10*3/uL; Neutrophils % 69.4 % (38.7-73.9); Platelet Count 277 T/CUMM (130-400); Red Blood Count 2.92 MC/CUMM (3.8-5.5); Red Cell Distribution Width 17.2 % (9.3-17.3); White Blood Count 15.1 T/CUMM (4-12)
[2020-02-10] MEDS: levETIRAcetam 500 MG TABLET PO SCH ×2 (09:45→21:50)
[2020-02-10] MEDS: ATORVASTATIN 20 MG TABLET PO SCH (09:45)
[2020-02-10] MEDS: predniSONE 20 MG TABLET PO SCH (09:46)
[2020-02-10] MEDS: POTASSIUM CHLORIDE 20 MEQ/15 ML UDCUP PER TUBE SCH ×2 (09:46→21:51)
[2020-02-10] MEDS: FERROUS SULFATE 325 MG TABLET PO SCH ×2 (09:46→21:50)
[2020-02-10] MEDS: ASPIRIN CHEW 81 MG TABLET PO SCH (09:46)
[2020-02-10] MEDS: INSULIN GLARGINE 100 UNIT/ML SUBCUT SCH (09:48)
[2020-02-10] MEDS: FUROSEMIDE 40 MG/4 ML VIAL IV SCH ×2 (09:52→14:19)
[2020-02-10 10:09] LABS: Band Neutrophils 1 % (0-10); Calcium 7.7 MG/DL (8.5-10.1); Eosinophils 2 % (0-10); Lymphocytes 16 % (20-55); Myelocytes 1 %; Segmented Neutrophils 72 % (50-85); Total Cells Counted 100
[2020-02-10 10:10] LABS: Anisocytosis 1+; Hypochromasia 1+; Polychromasia Slight; Target Cells Slight
[2020-02-10 10:11] LABS: Acanthocytes Few; Howell-Jolly Bodies Slight; Ovalocytes Slight; Platelet Estimate Normal
[2020-02-10] MEDS: ENOXAPARIN 30 MG/0.3 ML SYRINGE SUBCUT SCH (14:19)
[2020-02-10] MEDS: PANTOPRAZOLE 40 MG VIAL IV SCH (18:02)
[2020-02-10] MEDS: ENOXAPARIN 40 MG/0.4 ML SYRINGE SUBCUT SCH (18:04)
[2020-02-10] MEDS: AZITHROMYCIN INJ 500 MG in SODIUM CHLORIDE 0.9% 250 ML IV SCH (18:15)
[2020-02-10] MEDS: FLUCONAZOLE INJ 100 MG in IV BAG 1 EACH IV SCH (21:14)
[2020-02-10] MEDS: EZETIMIBE 10 MG TABLET PO SCH (21:50)
[2020-02-11] MEDS: CEFEPIME 1,000 MG in SODIUM CHLORIDE 0.9% 100 ML IV SCH ×2 (01:26→10:34)
[2020-02-11 04:01] LABS: ABG Base Excess 9.9 MMOL/L (-2.5-2.5); ABG HCO3 33.7 MMOL/L (20-26); ABG Oxygen Saturation 99.5 % (95-100); ABG PCO2 55.1 MM HG (35-48); ABG PH 7.422 (7.35-7.45); ABG TCO2 33.2 MMOL/L (23-27); Allen Test Positive; Pt O2 Delivery Device Ventilator
[2020-02-11 06:07] LABS: Basophils % 0.3 % (0.0-0.8); Eosinophils # 0.3 10*3/uL (0.0-0.87); Eosinophils % 2.1 % (0.00-10.9); Hematocrit 30.9 VOL% (35.7-47.0); Immature Granulocytes Absolute 0.41 #; Lymphocytes # 2.8 10*3/uL (1.4-4.0); Lymphocytes % 20.4 % (21.3-54.2); Mean Corpuscular HGB Conc 29.1 GM/DL (32-36); Mean Corpuscular Volume 97.8 FL (87-102); Mean Platelet Volume 12.4 FL (9.6-12.0); Monocytes % 12.6 % (1.7-12.7); NRBC # 0.05 10*3/uL; Neutrophils % 61.6 % (38.7-73.9); Platelet Count 258 T/CUMM (130-400); Red Blood Count 3.16 MC/CUMM (3.8-5.5); Red Cell Distribution Width 17.2 % (9.3-17.3); White Blood Count 13.6 T/CUMM (4-12)
[2020-02-11 06:30] LABS: Calcium 7.6 MG/DL (8.5-10.1); Osmolality,Calculated 288.5 MOS/KG (273-304)
[2020-02-11] MEDS: INSULIN REGULAR 100 UNIT/ML SUBCUT SCH ×4 (06:33→23:33)
[2020-02-11] MEDS: LEVOTHYROXINE 100 MCG TABLET PO SCH (06:43)
[2020-02-11 06:49] LABS: Hypochromasia 1+
[2020-02-11 06:50] LABS: Anisocytosis 1+; Ovalocytes Slight; Target Cells Few
[2020-02-11 06:51] LABS: Acanthocytes Few
[2020-02-11] MEDS ORDERED: hydrALAZINE 20 MG/1 ML VIAL IV PRN (07:56)
[2020-02-11] MEDS: POTASSIUM CHLORIDE 20 MEQ/15 ML UDCUP PER TUBE SCH ×2 (10:02→10:42)
[2020-02-11] MEDS: ATORVASTATIN 20 MG TABLET PO SCH (10:03)
[2020-02-11] MEDS: predniSONE 20 MG TABLET PO SCH (10:03)
[2020-02-11] MEDS: ASPIRIN CHEW 81 MG TABLET PO SCH (10:04)
[2020-02-11] MEDS: INSULIN GLARGINE 100 UNIT/ML SUBCUT SCH (10:04)
[2020-02-11] MEDS: levETIRAcetam 500 MG TABLET PO SCH ×2 (10:04→22:09)
[2020-02-11] MEDS: FUROSEMIDE 40 MG/4 ML VIAL IV SCH (10:06)
[2020-02-11] MEDS: FERROUS SULFATE 300 MG/5 ML UDCUP NG SCH ×2 (10:15→22:09)
[2020-02-11] MEDS: cefOXitin 1,000 MG in SODIUM CHLORIDE 0.9% 100 ML IV SCH ×2 (10:18→18:00)
[2020-02-11] MEDS ORDERED: GENTAMICIN INJ 220 MG in SODIUM CHLORIDE 0.9% 100 ML IV ONE (10:30)
[2020-02-11] MEDS: FERROUS SULFATE 325 MG TABLET PO SCH (10:34)
[2020-02-11] MEDS: DEXMEDETOMIDINE 400 MCG in SODIUM CHLORIDE 0.9% 96 ML IV PRN (15:00)
[2020-02-11] MEDS: PANTOPRAZOLE 40 MG VIAL IV SCH (17:53)
[2020-02-11] MEDS: ENOXAPARIN 40 MG/0.4 ML SYRINGE SUBCUT SCH (17:56)
[2020-02-11] MEDS: FLUCONAZOLE INJ 100 MG in IV BAG 1 EACH IV SCH (20:29)
[2020-02-11] MEDS: EZETIMIBE 10 MG TABLET PO SCH (22:09)
[2020-02-12 03:05] LABS: ABG Base Excess 6.9 MMOL/L (-2.5-2.5); ABG HCO3 30.7 MMOL/L (20-26); ABG Oxygen Saturation 99.7 % (95-100); ABG PCO2 51.1 MM HG (35-48); ABG PH 7.413 (7.35-7.45); ABG TCO2 29.7 MMOL/L (23-27); Allen Test Positive; Pt O2 Delivery Device Ventilator
[2020-02-12 03:11] LABS: Basophils # 0.1 10*3/uL (0.0-0.2); Basophils % 0.5 % (0.0-0.8); Eosinophils # 0.2 10*3/uL (0.0-0.87); Eosinophils % 1.4 % (0.00-10.9); Hematocrit 33.3 VOL% (35.7-47.0); Immature Granulocytes % 3.9 %; Immature Granulocytes Absolute 0.55 #; Lymphocytes # 2.3 10*3/uL (1.4-4.0); Lymphocytes % 16.2 % (21.3-54.2); Mean Corpuscular Volume 95.4 FL (87-102); Mean Platelet Volume 12.1 FL (9.6-12.0); Monocytes % 11.3 % (1.7-12.7); NRBC # 0.04 10*3/uL; Neutrophils % 66.7 % (38.7-73.9); Platelet Count 260 T/CUMM (130-400); Red Blood Count 3.49 MC/CUMM (3.8-5.5); White Blood Count 14.2 T/CUMM (4-12)
[2020-02-12 03:17] LABS: Calcium 8.2 MG/DL (8.5-10.1); Osmolality,Calculated 295.5 MOS/KG (273-304)
[2020-02-12] MEDS: DEXMEDETOMIDINE 400 MCG in SODIUM CHLORIDE 0.9% 96 ML IV PRN (03:43)
[2020-02-12] MEDS: POTASSIUM CHLORIDE 20 MEQ/15 ML UDCUP PER TUBE SCH ×3 (03:43→21:14)
[2020-02-12] MEDS: cefOXitin 1,000 MG in SODIUM CHLORIDE 0.9% 100 ML IV SCH ×3 (03:46→17:21)
[2020-02-12 04:36] LABS: Band Neutrophils 1 % (0-10); Eosinophils 3 % (0-10); Hypochromasia 1+; Lymphocytes 12 % (20-55); Myelocytes 2 %; Nucleated Red Blood Cells 1 (0-5); Polychromasia Slight; Segmented Neutrophils 74 % (50-85); Total Cells Counted 100
[2020-02-12 04:37] LABS: Ovalocytes Slight
[2020-02-12 04:38] LABS: Anisocytosis 1+; Platelet Estimate Normal
[2020-02-12] MEDS: INSULIN REGULAR 100 UNIT/ML SUBCUT SCH ×3 (05:54→18:07)
[2020-02-12] MEDS: LEVOTHYROXINE 100 MCG TABLET PO SCH (06:09)
[2020-02-12] MEDS: FUROSEMIDE 40 MG/4 ML VIAL IV SCH (08:25)
[2020-02-12] MEDS: levETIRAcetam 500 MG TABLET PO SCH ×2 (08:34→21:14)
[2020-02-12] MEDS: ASPIRIN CHEW 81 MG TABLET PO SCH (08:34)
[2020-02-12] MEDS: predniSONE 20 MG TABLET PO SCH (08:34)
[2020-02-12] MEDS: ATORVASTATIN 20 MG TABLET PO SCH (09:00)
[2020-02-12] MEDS: FERROUS SULFATE 300 MG/5 ML UDCUP NG SCH ×2 (09:00→21:14)
[2020-02-12] MEDS: GENTAMICIN INJ 100 MG in PREMIX 1 EACH IV SCH (09:32)
[2020-02-12] MEDS ORDERED: amLODIPine 5 MG TABLET PO ONE (10:31)
[2020-02-12] MEDS: ENOXAPARIN 30 MG/0.3 ML SYRINGE SUBCUT SCH (10:35)
[2020-02-12] MEDS: INSULIN GLARGINE 100 UNIT/ML SUBCUT SCH ×2 (11:42→11:53)
[2020-02-12] MEDS: SKIN HEALING OINT (AQUAPHOR) 50 GM TUBE TOP PRN (14:00)
[2020-02-12] MEDS: PANTOPRAZOLE 40 MG VIAL IV SCH (17:16)
[2020-02-12] MEDS: FLUCONAZOLE INJ 100 MG in IV BAG 1 EACH IV SCH (20:35)
[2020-02-12] MEDS: ATORVASTATIN 80 MG TABLET PO SCH (21:14)
[2020-02-12] MEDS: EZETIMIBE 10 MG TABLET PO SCH (21:14)
[2020-02-13] MEDS: INSULIN REGULAR 100 UNIT/ML SUBCUT SCH ×4 (00:30→17:34)
[2020-02-13] MEDS: cefOXitin 1,000 MG in SODIUM CHLORIDE 0.9% 100 ML IV SCH ×3 (02:08→21:52)
[2020-02-13] MEDS ORDERED: ALBUMIN 5% 25 GM in PREMIX 1 EACH IV ONE (03:00)
[2020-02-13 05:06] LABS: ABG Base Excess 1.8 MMOL/L (-2.5-2.5); ABG HCO3 26.6 MMOL/L (20-26); ABG Oxygen Saturation 98.8 % (95-100); ABG PCO2 43.1 MM HG (35-48); ABG PH 7.409 (7.35-7.45); ABG PO2 150.4 MM HG (80-95); Allen Test Positive; Pt O2 Delivery Device Ventilator
[2020-02-13 05:34] LABS: Basophils # 0.1 10*3/uL (0.0-0.2); Basophils % 0.6 % (0.0-0.8); Eosinophils # 0.6 10*3/uL (0.0-0.87); Eosinophils % 3.9 % (0.00-10.9); Hematocrit 30.3 VOL% (35.7-47.0); Hemoglobin 9.1 GM/DL (12.0-16.0); Immature Granulocytes % 6.7 %; Immature Granulocytes Absolute 1.03 #; Lymphocytes # 2.4 10*3/uL (1.4-4.0); Lymphocytes % 15.4 % (21.3-54.2); Mean Corpuscular Volume 96.8 FL (87-102); Mean Platelet Volume 12.4 FL (9.6-12.0); Monocytes % 15.6 % (1.7-12.7); NRBC # 0.04 10*3/uL; Neutrophils % 57.8 % (38.7-73.9); Platelet Count 252 T/CUMM (130-400); Red Blood Count 3.13 MC/CUMM (3.8-5.5); Red Cell Distribution Width 17.1 % (9.3-17.3); White Blood Count 15.5 T/CUMM (4-12)
[2020-02-13 05:52] LABS: Calcium 8.2 MG/DL (8.5-10.1); Osmolality,Calculated 299.1 MOS/KG (273-304)
[2020-02-13 05:56] LABS: Prealbumin 18.6 MG/DL (20-40)
[2020-02-13 06:08] LABS: Eosinophils 6 % (0-10); Lymphocytes 15 % (20-55); Myelocytes 1 %; Promyelocytes 1 %; Segmented Neutrophils 63 % (50-85); Total Cells Counted 100
[2020-02-13 06:09] LABS: Hypochromasia 1+; Macrocytosis 1+; Polychromasia Slight
[2020-02-13 06:10] LABS: Acanthocytes Few; Platelet Estimate Normal
[2020-02-13] MEDS: LEVOTHYROXINE 100 MCG TABLET PO SCH (06:21)
[2020-02-13] MEDS: levETIRAcetam 500 MG TABLET PO SCH ×2 (08:17→20:48)
[2020-02-13] MEDS: ASPIRIN CHEW 81 MG TABLET PO SCH (08:17)
[2020-02-13] MEDS: predniSONE 20 MG TABLET PO SCH (08:18)
[2020-02-13] MEDS: amLODIPine 5 MG TABLET PO SCH (08:18)
[2020-02-13] MEDS: POTASSIUM CHLORIDE 20 MEQ/15 ML UDCUP PER TUBE SCH ×2 (08:19→20:49)
[2020-02-13] MEDS: INSULIN GLARGINE 100 UNIT/ML SUBCUT SCH (08:19)
[2020-02-13] MEDS: FERROUS SULFATE 300 MG/5 ML UDCUP NG SCH ×2 (08:20→20:44)
[2020-02-13] MEDS ORDERED: amLODIPine 5 MG TABLET NG ONE (09:08)
[2020-02-13] MEDS: ENOXAPARIN 30 MG/0.3 ML SYRINGE SUBCUT SCH (09:33)
[2020-02-13] MEDS: GENTAMICIN INJ 100 MG in PREMIX 1 EACH IV SCH (13:57)
[2020-02-13] MEDS: SKIN HEALING OINT (AQUAPHOR) 50 GM TUBE TOP PRN (14:00)
[2020-02-13 14:06] LABS: ABG Base Excess -0.3 MMOL/L (-2.5-2.5); ABG HCO3 25.9 MMOL/L (20-26); ABG Oxygen Saturation 98.4 % (95-100); ABG PCO2 49.6 MM HG (35-48); ABG PH 7.336 (7.35-7.45); ABG PO2 142.4 MM HG (80-95); ABG TCO2 27.4 MMOL/L (23-27); Allen Test Positive; Pt O2 Delivery Device Ventilator
[2020-02-13] MEDS: PANTOPRAZOLE 40 MG VIAL IV SCH (17:05)
[2020-02-13 17:17] LABS: ABG Base Excess -1.1 MMOL/L (-2.5-2.5); ABG HCO3 23.6 MMOL/L (20-26); ABG Oxygen Saturation 99.8 % (95-100); ABG PH 7.304 (7.35-7.45); ABG TCO2 23.8 MMOL/L (23-27); Allen Test Positive
[2020-02-13] MEDS: FLUCONAZOLE INJ 100 MG in IV BAG 1 EACH IV SCH (20:44)
[2020-02-13] MEDS: ATORVASTATIN 80 MG TABLET PO SCH (20:48)
[2020-02-13] MEDS: EZETIMIBE 10 MG TABLET PO SCH (20:48)
[2020-02-14] MEDS: INSULIN REGULAR 100 UNIT/ML SUBCUT SCH ×5 (02:58→21:22)
[2020-02-14 05:20] LABS: Calcium 8.7 MG/DL (8.5-10.1); Osmolality,Calculated 292.4 MOS/KG (273-304)
[2020-02-14 05:30] LABS: Basophils # 0.1 10*3/uL (0.0-0.2); Basophils % 0.9 % (0.0-0.8); Eosinophils # 0.3 10*3/uL (0.0-0.87); Eosinophils % 1.7 % (0.00-10.9); Hematocrit 35.7 VOL% (35.7-47.0); Hemoglobin 10.4 GM/DL (12.0-16.0); Immature Granulocytes % 7.3 %; Immature Granulocytes Absolute 1.07 #; Lymphocytes # 2.5 10*3/uL (1.4-4.0); Lymphocytes % 17.2 % (21.3-54.2); Mean Corpuscular HGB Conc 29.1 GM/DL (32-36); Mean Corpuscular Volume 98.1 FL (87-102); Mean Platelet Volume 12.4 FL (9.6-12.0); Monocytes % 15.1 % (1.7-12.7); NRBC # 0.03 10*3/uL; Neutrophils % 57.8 % (38.7-73.9); Platelet Count 300 T/CUMM (130-400); Red Blood Count 3.64 MC/CUMM (3.8-5.5); White Blood Count 14.7 T/CUMM (4-12)
[2020-02-14] MEDS: LEVOTHYROXINE 100 MCG TABLET PO SCH (05:40)
[2020-02-14] MEDS: cefOXitin 1,000 MG in SODIUM CHLORIDE 0.9% 100 ML IV SCH ×3 (05:40→21:22)
[2020-02-14 05:55] LABS: Eosinophils 1 % (0-10); Hypochromasia 1+; Lymphocytes 19 % (20-55); Macrocytosis 1+; Metamyelocytes 2 %; Myelocytes 2 %; Polychromasia Slight; Segmented Neutrophils 67 % (50-85); Total Cells Counted 100
[2020-02-14 05:56] LABS: Acanthocytes Few; Platelet Estimate Normal; Target Cells Slight
[2020-02-14] MEDS: INSULIN GLARGINE 100 UNIT/ML SUBCUT SCH (08:52)
[2020-02-14] MEDS: GENTAMICIN INJ 100 MG in PREMIX 1 EACH IV SCH (09:02)
[2020-02-14] MEDS: ENOXAPARIN 30 MG/0.3 ML SYRINGE SUBCUT SCH (09:02)
[2020-02-14] MEDS: amLODIPine 10 MG TABLET NG SCH (09:15)
[2020-02-14] MEDS: amLODIPine 5 MG TABLET PO SCH (09:15)
[2020-02-14] MEDS: levETIRAcetam 500 MG TABLET PO SCH ×2 (09:15→21:21)
[2020-02-14] MEDS: ASPIRIN CHEW 81 MG TABLET PO SCH (09:16)
[2020-02-14] MEDS: predniSONE 20 MG TABLET PO SCH (09:16)
[2020-02-14] MEDS: FERROUS SULFATE 300 MG/5 ML UDCUP NG SCH (09:29)
[2020-02-14] MEDS: POTASSIUM CHLORIDE 20 MEQ/15 ML UDCUP PER TUBE SCH ×2 (09:29→21:21)
[2020-02-14] MEDS: PANTOPRAZOLE 40 MG VIAL IV SCH (17:43)
[2020-02-14] MEDS: FLUCONAZOLE INJ 100 MG in IV BAG 1 EACH IV SCH (20:34)
[2020-02-14] MEDS: EZETIMIBE 10 MG TABLET PO SCH (21:21)
[2020-02-14] MEDS: ATORVASTATIN 80 MG TABLET PO SCH (21:21)
[2020-02-14] MEDS: FERROUS SULFATE 325 MG TABLET PO SCH (21:21)
[2020-02-15 07:14] LABS: Basophils # 0.1 10*3/uL (0.0-0.2); Basophils % 0.6 % (0.0-0.8); Eosinophils # 0.3 10*3/uL (0.0-0.87); Hematocrit 31.3 VOL% (35.7-47.0); Immature Granulocytes Absolute 0.75 #; Lymphocytes # 2.3 10*3/uL (1.4-4.0); Lymphocytes % 18.5 % (21.3-54.2); Mean Corpuscular HGB Conc 28.8 GM/DL (32-36); Mean Corpuscular Volume 101.3 FL (87-102); Mean Platelet Volume 12.3 FL (9.6-12.0); Monocytes % 16.5 % (1.7-12.7); NRBC # 0.02 10*3/uL; Neutrophils % 56.4 % (38.7-73.9); Platelet Count 266 T/CUMM (130-400); Red Blood Count 3.09 MC/CUMM (3.8-5.5); White Blood Count 12.5 T/CUMM (4-12)
[2020-02-15 07:15] LABS: Calcium 8.5 MG/DL (8.5-10.1)
[2020-02-15 08:03] LABS: Eosinophils 7 % (0-10); Lymphocytes 21 % (20-55); Platelet Estimate Adequate; Segmented Neutrophils 59 % (50-85); Total Cells Counted 100
[2020-02-15 08:04] LABS: Hypochromasia 1+; Macrocytosis Slight
[2020-02-15] MEDS: POTASSIUM CHLORIDE 20 MEQ/15 ML UDCUP PER TUBE SCH ×2 (09:29→22:53)
[2020-02-15] MEDS: ASPIRIN CHEW 81 MG TABLET PO SCH (09:31)
[2020-02-15] MEDS: amLODIPine 5 MG TABLET PO SCH (09:31)
[2020-02-15] MEDS: FERROUS SULFATE 325 MG TABLET PO SCH ×2 (09:31→22:52)
[2020-02-15] MEDS: LEVOTHYROXINE 100 MCG TABLET PO SCH (09:31)
[2020-02-15] MEDS: levETIRAcetam 500 MG TABLET PO SCH ×2 (09:31→22:53)
[2020-02-15] MEDS: predniSONE 20 MG TABLET PO SCH (09:31)
[2020-02-15] MEDS: amLODIPine 10 MG TABLET NG SCH (09:32)
[2020-02-15] MEDS: INSULIN GLARGINE 100 UNIT/ML SUBCUT SCH (09:32)
[2020-02-15] MEDS: ENOXAPARIN 30 MG/0.3 ML SYRINGE SUBCUT SCH (09:32)
[2020-02-15] MEDS: INSULIN REGULAR 100 UNIT/ML SUBCUT SCH ×4 (09:34→22:51)
[2020-02-15] MEDS: cefOXitin 1,000 MG in SODIUM CHLORIDE 0.9% 100 ML IV SCH ×3 (10:44→22:51)
[2020-02-15] MEDS: PANTOPRAZOLE 40 MG VIAL IV SCH (17:54)
[2020-02-15] MEDS: EZETIMIBE 10 MG TABLET PO SCH (22:52)
[2020-02-15] MEDS: ATORVASTATIN 80 MG TABLET PO SCH (22:53)
[2020-02-16] MEDS: GENTAMICIN INJ 80 MG in PREMIX 1 EACH IV SCH (00:16)
[2020-02-16] MEDS: cefOXitin 1,000 MG in SODIUM CHLORIDE 0.9% 100 ML IV SCH ×3 (05:00→22:09)
[2020-02-16] MEDS: LEVOTHYROXINE 100 MCG TABLET PO SCH (05:50)
[2020-02-16 06:42] LABS: Basophils # 0.1 10*3/uL (0.0-0.2); Basophils % 0.4 % (0.0-0.8); Eosinophils % 0.2 % (0.00-10.9); Hematocrit 31.4 VOL% (35.7-47.0); Hemoglobin 9.4 GM/DL (12.0-16.0); Immature Granulocytes % 3.8 %; Immature Granulocytes Absolute 0.48 #; Lymphocytes # 1.5 10*3/uL (1.4-4.0); Lymphocytes % 11.5 % (21.3-54.2); Mean Corpuscular HGB Conc 29.9 GM/DL (32-36); Mean Corpuscular Volume 97.2 FL (87-102); Mean Platelet Volume 11.9 FL (9.6-12.0); Monocytes % 14.3 % (1.7-12.7); NRBC # 0.02 10*3/uL; Neutrophils % 69.8 % (38.7-73.9); Platelet Count 287 T/CUMM (130-400); Red Blood Count 3.23 MC/CUMM (3.8-5.5); Red Cell Distribution Width 16.8 % (9.3-17.3); White Blood Count 12.8 T/CUMM (4-12)
[2020-02-16 07:11] LABS: Calcium 8.4 MG/DL (8.5-10.1); Osmolality,Calculated 302.6 MOS/KG (273-304)
[2020-02-16] MEDS: FERROUS SULFATE 325 MG TABLET PO SCH ×2 (09:13→21:11)
[2020-02-16] MEDS: POTASSIUM CHLORIDE 20 MEQ/15 ML UDCUP PER TUBE SCH ×2 (09:13→21:10)
[2020-02-16] MEDS: amLODIPine 5 MG TABLET PO SCH (09:13)
[2020-02-16] MEDS: levETIRAcetam 500 MG TABLET PO SCH ×2 (09:14→21:12)
[2020-02-16] MEDS: amLODIPine 10 MG TABLET NG SCH (09:14)
[2020-02-16] MEDS: predniSONE 20 MG TABLET PO SCH (09:14)
[2020-02-16] MEDS: ASPIRIN CHEW 81 MG TABLET PO SCH (09:14)
[2020-02-16] MEDS: INSULIN REGULAR 100 UNIT/ML SUBCUT SCH ×4 (09:15→21:11)
[2020-02-16] MEDS: INSULIN GLARGINE 100 UNIT/ML SUBCUT SCH (09:37)
[2020-02-16] MEDS: ENOXAPARIN 40 MG/0.4 ML SYRINGE SUBCUT SCH (09:38)
[2020-02-16] MEDS: hydrALAZINE 10 MG TABLET PO SCH ×2 (15:52→21:12)
[2020-02-16] MEDS: PANTOPRAZOLE 40 MG VIAL IV SCH (18:06)
[2020-02-16] MEDS: EZETIMIBE 10 MG TABLET PO SCH (21:11)
[2020-02-16] MEDS: ATORVASTATIN 80 MG TABLET PO SCH (21:12)
[2020-02-17] MEDS: LEVOTHYROXINE 100 MCG TABLET PO SCH (05:32)
[2020-02-17] MEDS: cefOXitin 1,000 MG in SODIUM CHLORIDE 0.9% 100 ML IV SCH ×3 (05:32→22:40)
[2020-02-17 07:17] LABS: Basophils # 0.1 10*3/uL (0.0-0.2); Basophils % 0.5 % (0.0-0.8); Eosinophils # 0.1 10*3/uL (0.0-0.87); Hematocrit 33.8 VOL% (35.7-47.0); Immature Granulocytes % 2.2 %; Lymphocytes # 2.7 10*3/uL (1.4-4.0); Lymphocytes % 19.4 % (21.3-54.2); Mean Corpuscular HGB Conc 29.6 GM/DL (32-36); Mean Corpuscular Volume 97.7 FL (87-102); Monocytes % 13.2 % (1.7-12.7); NRBC # 0.02 10*3/uL; Neutrophils % 63.7 % (38.7-73.9); Platelet Count 313 T/CUMM (130-400); Red Blood Count 3.46 MC/CUMM (3.8-5.5); Red Cell Distribution Width 17.1 % (9.3-17.3); White Blood Count 13.6 T/CUMM (4-12)
[2020-02-17 07:23] LABS: Calcium 8.9 MG/DL (8.5-10.1)
[2020-02-17] MEDS: INSULIN REGULAR 100 UNIT/ML SUBCUT SCH ×4 (08:05→22:39)
[2020-02-17] MEDS: amLODIPine 5 MG TABLET PO SCH (10:06)
[2020-02-17] MEDS: FERROUS SULFATE 325 MG TABLET PO SCH ×2 (10:07→22:39)
[2020-02-17] MEDS: hydrALAZINE 10 MG TABLET PO SCH ×3 (10:07→22:38)
[2020-02-17] MEDS: amLODIPine 10 MG TABLET NG SCH (10:07)
[2020-02-17] MEDS: POTASSIUM CHLORIDE 20 MEQ/15 ML UDCUP PER TUBE SCH ×2 (10:07→22:39)
[2020-02-17] MEDS: ASPIRIN CHEW 81 MG TABLET PO SCH (10:07)
[2020-02-17] MEDS: levETIRAcetam 500 MG TABLET PO SCH ×2 (10:07→22:39)
[2020-02-17] MEDS: predniSONE 20 MG TABLET PO SCH (10:07)
[2020-02-17] MEDS: ENOXAPARIN 40 MG/0.4 ML SYRINGE SUBCUT SCH (10:08)
[2020-02-17] MEDS: INSULIN GLARGINE 100 UNIT/ML SUBCUT SCH ×2 (10:10→13:26)
[2020-02-17] MEDS: GENTAMICIN INJ 80 MG in PREMIX 1 EACH IV SCH (14:05)
[2020-02-17] MEDS: carvediloL 6.25 MG TABLET PO SCH (17:55)
[2020-02-17] MEDS: PANTOPRAZOLE 40 MG VIAL IV SCH (17:55)
[2020-02-17] MEDS ORDERED: hydrALAZINE 25 MG TABLET PO SCH (21:00)
[2020-02-17] MEDS: EZETIMIBE 10 MG TABLET PO SCH (22:39)
[2020-02-17] MEDS: ATORVASTATIN 80 MG TABLET PO SCH (22:39)
[2020-02-18] MEDS: cefOXitin 1,000 MG in SODIUM CHLORIDE 0.9% 100 ML IV SCH (05:09)
[2020-02-18] MEDS: LEVOTHYROXINE 100 MCG TABLET PO SCH (05:41)
[2020-02-18] MEDS: ENOXAPARIN 40 MG/0.4 ML SYRINGE SUBCUT SCH (09:04)
[2020-02-18] MEDS: INSULIN GLARGINE 100 UNIT/ML SUBCUT SCH (09:04)
[2020-02-18] MEDS: POTASSIUM CHLORIDE 20 MEQ/15 ML UDCUP PER TUBE SCH ×2 (09:04→21:23)
[2020-02-18] MEDS: ASPIRIN CHEW 81 MG TABLET PO SCH (09:05)
[2020-02-18] MEDS: predniSONE 20 MG TABLET PO SCH (09:05)
[2020-02-18] MEDS: levETIRAcetam 500 MG TABLET PO SCH ×2 (09:05→21:23)
[2020-02-18] MEDS: amLODIPine 10 MG TABLET PO SCH (09:05)
[2020-02-18] MEDS: FERROUS SULFATE 325 MG TABLET PO SCH ×2 (09:05→21:24)
[2020-02-18] MEDS: carvediloL 6.25 MG TABLET PO SCH ×2 (09:05→17:30)
[2020-02-18] MEDS: INSULIN REGULAR 100 UNIT/ML SUBCUT SCH ×4 (09:06→21:24)
[2020-02-18] MEDS: hydrALAZINE 10 MG TABLET PO SCH ×3 (09:09→21:23)
[2020-02-18] MEDS: cefOXitin 1,000 MG in SYRINGE 1 EACH IV SCH ×2 (10:55→17:33)
[2020-02-18] MEDS: PANTOPRAZOLE 40 MG VIAL IV SCH (17:30)
[2020-02-18] MEDS: ATORVASTATIN 80 MG TABLET PO SCH (21:23)
[2020-02-18] MEDS: EZETIMIBE 10 MG TABLET PO SCH (21:23)
[2020-02-19] MEDS: cefOXitin 1,000 MG in SYRINGE 1 EACH IV SCH ×2 (01:44→10:21)
[2020-02-19] MEDS: LEVOTHYROXINE 100 MCG TABLET PO SCH (05:42)
[2020-02-19] MEDS ORDERED: TUBERCULIN SKIN TEST 0.1 ML SYRINGE INTRADERM ONE (08:55)
[2020-02-19] MEDS: ASPIRIN CHEW 81 MG TABLET PO SCH (10:11)
[2020-02-19] MEDS: FERROUS SULFATE 325 MG TABLET PO SCH (10:11)
[2020-02-19] MEDS: hydrALAZINE 10 MG TABLET PO SCH ×2 (10:11→15:12)
[2020-02-19] MEDS: INSULIN REGULAR 100 UNIT/ML SUBCUT SCH ×2 (10:11→12:18)
[2020-02-19] MEDS: carvediloL 6.25 MG TABLET PO SCH (10:11)
[2020-02-19] MEDS: INSULIN GLARGINE 100 UNIT/ML SUBCUT SCH ×2 (10:12→12:19)
[2020-02-19] MEDS: POTASSIUM CHLORIDE 20 MEQ/15 ML UDCUP PER TUBE SCH (10:12)
[2020-02-19] MEDS: amLODIPine 10 MG TABLET PO SCH (10:12)
[2020-02-19] MEDS: levETIRAcetam 500 MG TABLET PO SCH (10:12)
[2020-02-19] MEDS: ENOXAPARIN 40 MG/0.4 ML SYRINGE SUBCUT SCH (10:13)
[2020-02-19] MEDS: predniSONE 20 MG TABLET PO SCH (10:13)
[2020-02-19 11:57] VITALS: BP 171/74
[2020-02-19] MEDS ORDERED: acetaZOLAMIDE 250 MG TABLET PO SCH (21:00)
== END 2020-02-19 15:56 | disposition swing bed (61) | DRG 207 ==
LOC: EDUNIT# → EDBD → N.ED 14:56 → N.ICU 15:45 → SUATTDRO 16:25 → N.EDINP 16:25 → N.ICU 17:37 → N.TELEN 02-14 17:13
PROVIDERS: ADMIT Internal Medicine; ATTEND Emergency Medicine

== ENCOUNTER 2020-11-11 09:19 | Inpatient (IN) ==
[2020-11-11 10:08] LABS: Albumin 3.1 G/DL (3.4-5.0); Bilirubin,Total 0.5 MG/DL (0.2-1.0); Calcium 7.9 MG/DL (8.5-10.1); Osmolality,Calculated 296.4 MOS/KG (273-304); Total Protein 7.8 G/DL (6.4-8.2)
[2020-11-11 10:10] LABS: Basophils # 0.1 10*3/uL (0.0-0.2); Basophils % 0.8 % (0.0-0.8); Eosinophils # 0.1 10*3/uL (0.0-0.87); Eosinophils % 1.1 % (0.00-10.9); Hemoglobin 10.2 GM/DL (12.0-16.0); Immature Granulocytes % 1.5 %; Immature Granulocytes Absolute 0.16 #; Lymphocytes % 9.6 % (21.3-54.2); Mean Corpuscular HGB Conc 29.1 GM/DL (32-36); Mean Corpuscular Volume 100.6 FL (87-102); Mean Platelet Volume 12.5 FL (9.6-12.0); Monocytes % 7.3 % (1.7-12.7); NRBC # 0.05 10*3/uL; Neutrophils % 79.7 % (38.7-73.9); Platelet Count 185 T/CUMM (130-400); Red Blood Count 3.48 MC/CUMM (3.8-5.5); Red Cell Distribution Width 17.5 % (9.3-17.3); White Blood Count 10.6 T/CUMM (4-12)
[2020-11-11 10:11] LABS: Potassium 5.3 MMOL/L (3.5-5.1)
[2020-11-11] MEDS ORDERED: FUROSEMIDE 40 MG/4 ML VIAL IV STA (10:17)
[2020-11-11] MEDS ORDERED: AZITHROMYCIN 250 MG TABLET PO STA (11:32)
[2020-11-11] MEDS ORDERED: cefTRIAXone 1,000 MG in SODIUM CHLORIDE 0.9% 100 ML IV STA (11:32)
[2020-11-11] MEDS ORDERED: GLUCAGON 1 MG VIAL IM PRN (13:07)
[2020-11-11] MEDS ORDERED: ONDANSETRON 4 MG/2 ML VIAL IV PRN (13:07)
[2020-11-11] MEDS ORDERED: DOCUSATE SODIUM 100 MG CAPSULE PO PRN (13:07)
[2020-11-11] MEDS ORDERED: DEXTROSE 50% 25 GM/50 ML VIAL IV PRN (13:07)
[2020-11-11] MEDS ORDERED: ENOXAPARIN 40 MG/0.4 ML SYRINGE SUBCUT SCH (13:30)
[2020-11-11] MEDS ORDERED: FUROSEMIDE 40 MG/4 ML VIAL IV SCH (16:00)
[2020-11-11] MEDS: ALBUTEROL/IPRATROPIUM 3 ML NEB RESP TX SCH (19:30)
[2020-11-12] MEDS: ALBUTEROL/IPRATROPIUM 3 ML NEB RESP TX SCH ×4 (00:50→19:37)
[2020-11-12 06:33] LABS: Calcium 8.1 MG/DL (8.5-10.1); Osmolality,Calculated 299.8 MOS/KG (273-304); Risk Ratio 2.21
[2020-11-12 07:09] LABS: Basophils # 0.1 10*3/uL (0.0-0.2); Basophils % 0.6 % (0.0-0.8); Eosinophils % 0.1 % (0.00-10.9); Hematocrit 36.4 VOL% (35.7-47.0); Immature Granulocytes % 1.7 %; Immature Granulocytes Absolute 0.14 #; Lymphocytes # 0.7 10*3/uL (1.4-4.0); Lymphocytes % 9.1 % (21.3-54.2); Mean Corpuscular HGB Conc 29.1 GM/DL (32-36); Mean Corpuscular Volume 101.4 FL (87-102); Mean Platelet Volume 12.6 FL (9.6-12.0); Monocytes % 6.7 % (1.7-12.7); NRBC # 0.04 10*3/uL; Neutrophils % 81.8 % (38.7-73.9); Platelet Count 166 T/CUMM (130-400); Red Blood Count 3.59 MC/CUMM (3.8-5.5); Red Cell Distribution Width 17.3 % (9.3-17.3); White Blood Count 8.2 T/CUMM (4-12)
[2020-11-12 07:10] LABS: Hemoglobin 10.6 GM/DL (12.0-16.0)
[2020-11-12 07:12] LABS: Band Neutrophils 2 % (0-10); Hypochromasia 1+; Lymphocytes 10 % (20-55); Nucleated Red Blood Cells 1 (0-5); Segmented Neutrophils 82 % (50-85); Total Cells Counted 100
[2020-11-12 07:13] LABS: Microcytosis 1+; Ovalocytes Slight
[2020-11-12 07:14] LABS: Acanthocytes Few; Platelet Estimate Adequate
[2020-11-12] MEDS ORDERED: SODIUM POLYSTYRENE SULFATE 15 GM/60 ML BOTTLE PO ONE (07:55)
[2020-11-12 09:02] LABS: ABG Base Excess 5.1 MMOL/L (-2.5-2.5); ABG HCO3 37.5 MMOL/L (20-26); ABG Oxygen Saturation 94.3 % (95-100); ABG PO2 82.6 MM HG (80-95); ABG TCO2 41.2 MMOL/L (23-27)
[2020-11-12 09:04] LABS: ABG PCO2 117.6 MM HG (35-48); ABG PH 7.122 (7.35-7.45)
[2020-11-12] MEDS: PANTOPRAZOLE 40 MG TABLET PO SCH (09:25)
[2020-11-12] MEDS ORDERED: DEXTROSE 50% 25 GM/50 ML VIAL IV ONE (09:45)
[2020-11-12] MEDS ORDERED: INSULIN REGULAR 100 UNIT/ML IV ONE (09:45)
[2020-11-12] MEDS: ASPIRIN 325 MG TABLET PO SCH (10:15)
[2020-11-12] MEDS ORDERED: FUROSEMIDE 40 MG/4 ML VIAL IV SCH ×2 (11:00→16:00)
[2020-11-12 11:01] LABS: ABG Base Excess 4.4 MMOL/L (-2.5-2.5); ABG HCO3 36.6 MMOL/L (20-26); ABG Oxygen Saturation 95.5 % (95-100); ABG PO2 89.6 MM HG (80-95); ABG TCO2 40.1 MMOL/L (23-27); Pt O2 Delivery Device BIPAP
[2020-11-12 11:04] LABS: ABG PCO2 114.7 MM HG (35-48); ABG PH 7.122 (7.35-7.45)
[2020-11-12] MEDS ORDERED: INSULIN REGULAR 100 UNIT/ML SUBCUT SCH (11:30)
[2020-11-12] MEDS ORDERED: ETOMIDATE 20 MG/10 ML VIAL IV ONE ×2 (11:32→12:00)
[2020-11-12] MEDS ORDERED: ROCURONIUM 100 MG/10 ML VIAL IV ONE ×2 (11:32→12:00)
[2020-11-12] MEDS ORDERED: ATROPINE 1 MG/10 ML SYRINGE ONE ×2 (11:36)
[2020-11-12] MEDS: MIDAZOLAM 100 MG in SODIUM CHLORIDE 0.9% 80 ML IV PRN (11:55)
[2020-11-12] MEDS: hydrALAZINE 20 MG/1 ML VIAL IV PRN (12:14)
[2020-11-12] MEDS: cefTRIAXone 1,000 MG in SYRINGE 1 EACH IV SCH (12:40)
[2020-11-12] MEDS: methylPREDNISolone SOD SUC 40 MG/1 ML VIAL IV SCH ×2 (12:46→20:14)
[2020-11-12 12:51] LABS: ABG Base Excess 6.9 MMOL/L (-2.5-2.5); ABG HCO3 30.7 MMOL/L (20-26); ABG PCO2 50.2 MM HG (35-48); ABG TCO2 29.4 MMOL/L (23-27); Pt O2 Delivery Device Ventilator
[2020-11-12] MEDS ORDERED: SODIUM ZIRCONIUM CYCLOSILICATE 10 GM PACK PO SCH ×2 (15:00→21:00)
[2020-11-12] MEDS: AZITHROMYCIN INJ 500 MG in SODIUM CHLORIDE 0.9% 250 ML IV SCH (15:19)
[2020-11-12] MEDS: ENOXAPARIN 30 MG/0.3 ML SYRINGE SUBCUT SCH (15:37)
[2020-11-12] MEDS: FERROUS SULFATE 325 MG TABLET PO SCH (17:11)
[2020-11-12] MEDS: INSULIN REGULAR 100 UNIT/ML SUBCUT SCH (17:48)
[2020-11-12] MEDS: EZETIMIBE 10 MG TABLET PO SCH (17:49)
[2020-11-12] MEDS: ATORVASTATIN 40 MG TABLET PO SCH (20:14)
[2020-11-12] MEDS ORDERED: LORazepam 2 MG/1 ML VIAL IV ONE (22:25)
[2020-11-12] MEDS ORDERED: levETIRAcetam 500 MG TABLET PO SCH (23:55)
[2020-11-13] MEDS: INSULIN REGULAR 100 UNIT/ML SUBCUT SCH ×4 (00:24→17:22)
[2020-11-13] MEDS: ACETAMINOPHEN 325 MG/10.15 ML UDCUP PO PRN (00:25)
[2020-11-13] MEDS: ALBUTEROL/IPRATROPIUM 3 ML NEB RESP TX SCH ×4 (00:44→19:48)
[2020-11-13 03:07] LABS: ABG Base Excess 9.4 MMOL/L (-2.5-2.5); ABG HCO3 33.2 MMOL/L (20-26); ABG Oxygen Saturation 99.5 % (95-100); ABG PCO2 39.3 MM HG (35-48); ABG PH 7.531 (7.35-7.45); ABG TCO2 29.7 MMOL/L (23-27); Allen Test Positive; Pt O2 Delivery Device Ventilator
[2020-11-13 05:03] LABS: Basophils % 0.1 % (0.0-0.8); Hematocrit 30.9 VOL% (35.7-47.0); Hemoglobin 9.7 GM/DL (12.0-16.0); Immature Granulocytes % 1.3 %; Immature Granulocytes Absolute 0.16 #; Lymphocytes # 0.4 10*3/uL (1.4-4.0); Lymphocytes % 3.3 % (21.3-54.2); Mean Corpuscular HGB Conc 31.4 GM/DL (32-36); Mean Corpuscular Volume 93.1 FL (87-102); Monocytes % 2.2 % (1.7-12.7); NRBC # 0.11 10*3/uL; Neutrophils % 93.1 % (38.7-73.9); Platelet Count 174 T/CUMM (130-400); Red Blood Count 3.32 MC/CUMM (3.8-5.5); Red Cell Distribution Width 17.7 % (9.3-17.3); White Blood Count 12.8 T/CUMM (4-12)
[2020-11-13 05:30] LABS: Calcium 7.7 MG/DL (8.5-10.1); Osmolality,Calculated 315.8 MOS/KG (273-304); Potassium 3.9 MMOL/L (3.5-5.1)
[2020-11-13 05:30] LABS: Band Neutrophils 1 % (0-10); Hypochromasia 1+; Lymphocytes 1 % (20-55); Microcytosis 1+; Nucleated Red Blood Cells 3 (0-5); Segmented Neutrophils 95 % (50-85); Total Cells Counted 100
[2020-11-13 05:31] LABS: Acanthocytes Few; Platelet Estimate Adequate; Target Cells Slight
[2020-11-13 05:36] LABS: Albumin 2.7 G/DL (3.4-5.0); Bilirubin,Total 0.9 MG/DL (0.2-1.0); Calcium 7.9 MG/DL (8.5-10.1); Osmolality,Calculated 318.6 MOS/KG (273-304); Total Protein 7.1 G/DL (6.4-8.2)
[2020-11-13] MEDS ORDERED: LORazepam 2 MG/1 ML VIAL IV ONE (05:51)
[2020-11-13] MEDS ORDERED: LORazepam 2 MG/1 ML VIAL IV PRN (05:51)
[2020-11-13] MEDS: methylPREDNISolone SOD SUC 40 MG/1 ML VIAL IV SCH ×3 (05:57→21:22)
[2020-11-13] MEDS: LEVOTHYROXINE 125 MCG TABLET PO SCH (06:38)
[2020-11-13] MEDS: INSULIN GLARGINE 100 UNIT/ML SUBCUT SCH (08:54)
[2020-11-13] MEDS: FERROUS SULFATE 325 MG TABLET PO SCH ×2 (08:54→17:15)
[2020-11-13] MEDS: ASPIRIN 325 MG TABLET PO SCH (08:54)
[2020-11-13] MEDS: PANTOPRAZOLE 40 MG TABLET PO SCH (08:54)
[2020-11-13] MEDS: levETIRAcetam LIQUID 100 MG/ML 30 ML/BOTTLE PO SCH ×2 (08:55→23:47)
[2020-11-13] MEDS: amLODIPine 5 MG TABLET PO SCH (08:55)
[2020-11-13] MEDS: MIDAZOLAM 100 MG in SODIUM CHLORIDE 0.9% 80 ML IV PRN ×2 (09:20→23:50)
[2020-11-13 11:49] LABS: Bacteria,Urine Occasional /HPF (Few); Bilirubin,Urine Negative (Negative); Blood, Urine Moderate mg/dL (Negative); Glucose,Urine (UA) 150 mg/dL (Negative); Hyaline Casts,Urine 14 /LPF (0-3); Ketones,Urine Negative (Negative); Mucus,Urine Occasional /LPF (Occasional); Nitrite,Urine Negative (Negative); Protein,Urine Negative; RBC,Urine 8 /HPF (0-4); Squamous Epithelial Cell,Urine Moderate /HPF (0-10); Urine Appearance Slightly Hazy (Clear); Urine Color Yellow (Yellow); Urine Specific Gravity 1.012 (1.001-1.035); Urine Urobilinogen < 2.0 EU/DL (0.2-1.0); WBC,Urine 15 /HPF (0-6)
[2020-11-13] MEDS: cefTRIAXone 1,000 MG in SYRINGE 1 EACH IV SCH (12:43)
[2020-11-13] MEDS: AZITHROMYCIN INJ 500 MG in SODIUM CHLORIDE 0.9% 250 ML IV SCH (14:30)
[2020-11-13] MEDS: ENOXAPARIN 30 MG/0.3 ML SYRINGE SUBCUT SCH (14:31)
[2020-11-13] MEDS: EZETIMIBE 10 MG TABLET PO SCH (17:22)
[2020-11-13] MEDS: ATORVASTATIN 40 MG TABLET PO SCH (21:23)
[2020-11-14] MEDS: ALBUTEROL/IPRATROPIUM 3 ML NEB RESP TX SCH ×4 (00:35→19:36)
[2020-11-14] MEDS: INSULIN REGULAR 100 UNIT/ML SUBCUT SCH ×4 (00:45→17:23)
[2020-11-14] MEDS: levETIRAcetam LIQUID 100 MG/ML 30 ML/BOTTLE PO SCH ×2 (02:36→11:53)
[2020-11-14 04:26] LABS: ABG Base Excess 10.5 MMOL/L (-2.5-2.5); ABG HCO3 34.3 MMOL/L (20-26); ABG Oxygen Saturation 99.1 % (95-100); ABG PCO2 42.7 MM HG (35-48); ABG PH 7.523 (7.35-7.45); ABG TCO2 35.6 MMOL/L (23-27); Allen Test Positive; Pt O2 Delivery Device Ventilator
[2020-11-14] MEDS: methylPREDNISolone SOD SUC 40 MG/1 ML VIAL IV SCH ×3 (04:50→20:27)
[2020-11-14 05:03] LABS: Basophils % 0.1 % (0.0-0.8); Hematocrit 30.2 VOL% (35.7-47.0); Hemoglobin 9.7 GM/DL (12.0-16.0); Immature Granulocytes % 0.7 %; Immature Granulocytes Absolute 0.12 #; Lymphocytes # 0.6 10*3/uL (1.4-4.0); Mean Corpuscular HGB Conc 32.1 GM/DL (32-36); Mean Platelet Volume 12.8 FL (9.6-12.0); Monocytes % 5.3 % (1.7-12.7); NRBC # 0.09 10*3/uL; Neutrophils % 89.9 % (38.7-73.9); Platelet Count 165 T/CUMM (130-400); Red Blood Count 3.32 MC/CUMM (3.8-5.5); White Blood Count 16.2 T/CUMM (4-12)
[2020-11-14 05:24] LABS: Calcium 7.8 MG/DL (8.5-10.1); Osmolality,Calculated 321.4 MOS/KG (273-304); Potassium 3.4 MMOL/L (3.5-5.1)
[2020-11-14] MEDS: LEVOTHYROXINE 125 MCG TABLET PO SCH (06:19)
[2020-11-14 06:43] LABS: Lymphocytes 5 % (20-55); Segmented Neutrophils 95 % (50-85); Total Cells Counted 100
[2020-11-14 06:44] LABS: Atypical Lymphocytes Few; Burr Cells Few; Hypochromasia 2+; Microcytosis Slight; Ovalocytes Few; Sickle Cells Few
[2020-11-14 06:45] LABS: Platelet Estimate Decreased
[2020-11-14] MEDS: PANTOPRAZOLE 40 MG TABLET PO SCH (08:48)
[2020-11-14] MEDS: FERROUS SULFATE 325 MG TABLET PO SCH ×2 (08:48→17:20)
[2020-11-14] MEDS: ASPIRIN 325 MG TABLET PO SCH (08:48)
[2020-11-14] MEDS: amLODIPine 5 MG TABLET PO SCH (08:49)
[2020-11-14] MEDS: INSULIN GLARGINE 100 UNIT/ML SUBCUT SCH (08:49)
[2020-11-14] MEDS ORDERED: INSULIN GLARGINE 100 UNIT/ML SUBCUT SCH (09:00)
[2020-11-14] MEDS ORDERED: FUROSEMIDE 40 MG/4 ML VIAL IV SCH (09:00)
[2020-11-14] MEDS ORDERED: INSULIN GLARGINE 100 UNIT/ML SUBCUT ONE (09:46)
[2020-11-14] MEDS: MIDAZOLAM 100 MG in SODIUM CHLORIDE 0.9% 80 ML IV PRN ×2 (11:10→22:40)
[2020-11-14] MEDS: FLUCONAZOLE INJ 200 MG in PREMIX 1 EACH IV SCH (11:14)
[2020-11-14] MEDS: cefTRIAXone 1,000 MG in SYRINGE 1 EACH IV SCH (11:54)
[2020-11-14] MEDS: ENOXAPARIN 30 MG/0.3 ML SYRINGE SUBCUT SCH (14:13)
[2020-11-14] MEDS: AZITHROMYCIN INJ 500 MG in SODIUM CHLORIDE 0.9% 250 ML IV SCH (14:14)
[2020-11-14] MEDS: FUROSEMIDE 40 MG/4 ML VIAL IV SCH (14:27)
[2020-11-14] MEDS: EZETIMIBE 10 MG TABLET PO SCH (17:23)
[2020-11-14] MEDS: ATORVASTATIN 40 MG TABLET PO SCH (20:28)
[2020-11-14] MEDS: ACETAMINOPHEN 325 MG/10.15 ML UDCUP PO PRN (20:39)
[2020-11-15] MEDS: ALBUTEROL/IPRATROPIUM 3 ML NEB RESP TX SCH ×4 (00:09→19:08)
[2020-11-15] MEDS: INSULIN REGULAR 100 UNIT/ML SUBCUT SCH ×4 (00:17→17:36)
[2020-11-15] MEDS: levETIRAcetam LIQUID 100 MG/ML 30 ML/BOTTLE PO SCH ×2 (00:17→11:37)
[2020-11-15] MEDS: methylPREDNISolone SOD SUC 40 MG/1 ML VIAL IV SCH ×2 (04:27→11:37)
[2020-11-15 04:38] LABS: ABG Base Excess 8.8 MMOL/L (-2.5-2.5); ABG HCO3 32.6 MMOL/L (20-26); ABG Oxygen Saturation 99.7 % (95-100); ABG PCO2 42.8 MM HG (35-48); ABG PH 7.496 (7.35-7.45); ABG TCO2 29.7 MMOL/L (23-27); Allen Test Positive; Pt O2 Delivery Device Ventilator
[2020-11-15 05:09] LABS: Basophils % 0.1 % (0.0-0.8); Hematocrit 31.7 VOL% (35.7-47.0); Hemoglobin 10.1 GM/DL (12.0-16.0); Immature Granulocytes % 0.9 %; Immature Granulocytes Absolute 0.11 #; Lymphocytes # 0.6 10*3/uL (1.4-4.0); Lymphocytes % 4.5 % (21.3-54.2); Mean Corpuscular HGB Conc 31.9 GM/DL (32-36); Mean Corpuscular Volume 90.8 FL (87-102); Mean Platelet Volume 12.9 FL (9.6-12.0); Monocytes % 5.4 % (1.7-12.7); NRBC # 0.06 10*3/uL; Neutrophils % 89.1 % (38.7-73.9); Platelet Count 156 T/CUMM (130-400); Red Blood Count 3.49 MC/CUMM (3.8-5.5); Red Cell Distribution Width 17.9 % (9.3-17.3); White Blood Count 12.3 T/CUMM (4-12)
[2020-11-15 05:25] LABS: Calcium 7.8 MG/DL (8.5-10.1); Osmolality,Calculated 323.3 MOS/KG (273-304); Potassium 3.3 MMOL/L (3.5-5.1)
[2020-11-15] MEDS: LEVOTHYROXINE 125 MCG TABLET PO SCH (06:26)
[2020-11-15 06:32] LABS: Band Neutrophils 1 % (0-10); Lymphocytes 2 % (20-55); Segmented Neutrophils 93 % (50-85); Total Cells Counted 100
[2020-11-15 06:33] LABS: Hypochromasia Slight; Microcytosis 1+; Platelet Estimate Normal
[2020-11-15 06:59] LABS: Polychromasia Few; Target Cells Few
[2020-11-15 07:00] LABS: Howell-Jolly Bodies Few
[2020-11-15] MEDS: FUROSEMIDE 40 MG/4 ML VIAL IV SCH ×3 (08:24→20:21)
[2020-11-15] MEDS: FERROUS SULFATE 325 MG TABLET PO SCH ×2 (08:24→17:35)
[2020-11-15] MEDS: ASPIRIN 325 MG TABLET PO SCH (08:24)
[2020-11-15] MEDS: amLODIPine 5 MG TABLET PO SCH (08:24)
[2020-11-15] MEDS: PANTOPRAZOLE 40 MG TABLET PO SCH (08:24)
[2020-11-15] MEDS: INSULIN GLARGINE 100 UNIT/ML SUBCUT SCH (08:28)
[2020-11-15] MEDS: FLUCONAZOLE INJ 200 MG in PREMIX 1 EACH IV SCH (10:01)
[2020-11-15] MEDS: cefTRIAXone 1,000 MG in SYRINGE 1 EACH IV SCH (11:39)
[2020-11-15 11:47] LABS: ABG Base Excess 7.5 MMOL/L (-2.5-2.5); ABG HCO3 35.6 MMOL/L (20-26); ABG PH 7.319 (7.35-7.45); ABG TCO2 37.8 MMOL/L (23-27)
[2020-11-15 11:48] LABS: ABG PCO2 70.8 MM HG (35-48)
[2020-11-15] MEDS: ENOXAPARIN 30 MG/0.3 ML SYRINGE SUBCUT SCH (14:02)
[2020-11-15] MEDS: AZITHROMYCIN INJ 500 MG in SODIUM CHLORIDE 0.9% 250 ML IV SCH (14:03)
[2020-11-15] MEDS: EZETIMIBE 10 MG TABLET PO SCH (17:35)
[2020-11-15] MEDS: POTASSIUM CHLORIDE RIDER 10 MEQ in PREMIX 1 EACH IV PRN ×3 (19:20→22:00)
[2020-11-15] MEDS: ATORVASTATIN 40 MG TABLET PO SCH (20:22)
[2020-11-16] MEDS: ALBUTEROL/IPRATROPIUM 3 ML NEB RESP TX SCH ×4 (00:01→18:33)
[2020-11-16] MEDS: methylPREDNISolone SOD SUC 40 MG/1 ML VIAL IV SCH ×2 (00:30→12:09)
[2020-11-16] MEDS: levETIRAcetam LIQUID 100 MG/ML 30 ML/BOTTLE PO SCH ×2 (00:30→12:09)
[2020-11-16] MEDS: INSULIN REGULAR 100 UNIT/ML SUBCUT SCH ×4 (00:30→17:49)
[2020-11-16 04:36] LABS: ABG Base Excess 9.3 MMOL/L (-2.5-2.5); ABG HCO3 33.1 MMOL/L (20-26); ABG Oxygen Saturation 99.6 % (95-100); ABG PCO2 47.4 MM HG (35-48); ABG PH 7.469 (7.35-7.45); ABG TCO2 30.6 MMOL/L (23-27)
[2020-11-16 06:02] LABS: Basophils % 0.1 % (0.0-0.8); Hematocrit 35.5 VOL% (35.7-47.0); Hemoglobin 11.2 GM/DL (12.0-16.0); Immature Granulocytes % 0.8 %; Immature Granulocytes Absolute 0.09 #; Lymphocytes # 0.5 10*3/uL (1.4-4.0); Lymphocytes % 4.1 % (21.3-54.2); Mean Corpuscular HGB Conc 31.5 GM/DL (32-36); Mean Corpuscular Volume 92.2 FL (87-102); Monocytes % 5.4 % (1.7-12.7); NRBC # 0.04 10*3/uL; Neutrophils % 89.6 % (38.7-73.9); Platelet Count 171 T/CUMM (130-400); Red Blood Count 3.85 MC/CUMM (3.8-5.5); Red Cell Distribution Width 17.6 % (9.3-17.3); White Blood Count 11.6 T/CUMM (4-12)
[2020-11-16 06:18] LABS: Osmolality,Calculated 325.4 MOS/KG (273-304); Potassium 3.3 MMOL/L (3.5-5.1)
[2020-11-16] MEDS: LEVOTHYROXINE 125 MCG TABLET PO SCH (06:26)
[2020-11-16 06:42] LABS: Hypochromasia 2+; Lymphocytes 8 % (20-55); Microcytosis 1+; Nucleated Red Blood Cells 1 (0-5); Segmented Neutrophils 89 % (50-85); Total Cells Counted 100
[2020-11-16 06:43] LABS: Acanthocytes Few; Platelet Estimate Adequate; Target Cells Slight
[2020-11-16] MEDS: POTASSIUM CHLORIDE RIDER 10 MEQ in PREMIX 1 EACH IV PRN ×4 (06:43→09:45)
[2020-11-16] MEDS: INSULIN GLARGINE 100 UNIT/ML SUBCUT SCH (08:21)
[2020-11-16] MEDS: amLODIPine 5 MG TABLET PO SCH (08:22)
[2020-11-16] MEDS: ASPIRIN 325 MG TABLET PO SCH (08:22)
[2020-11-16] MEDS: FUROSEMIDE 40 MG/4 ML VIAL IV SCH ×2 (08:22→20:20)
[2020-11-16] MEDS: FERROUS SULFATE 325 MG TABLET PO SCH ×2 (08:22→17:49)
[2020-11-16] MEDS: FAMOTIDINE 20 MG/2 ML VIAL IV SCH ×2 (08:34→20:20)
[2020-11-16] MEDS: FLUCONAZOLE INJ 200 MG in PREMIX 1 EACH IV SCH (09:56)
[2020-11-16] MEDS: cefTRIAXone 1,000 MG in SYRINGE 1 EACH IV SCH (12:08)
[2020-11-16] MEDS: AZITHROMYCIN INJ 500 MG in SODIUM CHLORIDE 0.9% 250 ML IV SCH (14:31)
[2020-11-16] MEDS: ENOXAPARIN 30 MG/0.3 ML SYRINGE SUBCUT SCH (14:31)
[2020-11-16] MEDS: EZETIMIBE 10 MG TABLET PO SCH (17:50)
[2020-11-16] MEDS: ATORVASTATIN 40 MG TABLET PO SCH (20:20)
[2020-11-17] MEDS: methylPREDNISolone SOD SUC 40 MG/1 ML VIAL IV SCH ×2 (00:30→12:38)
[2020-11-17] MEDS: levETIRAcetam LIQUID 100 MG/ML 30 ML/BOTTLE PO SCH ×2 (00:30→12:36)
[2020-11-17] MEDS: INSULIN REGULAR 100 UNIT/ML SUBCUT SCH ×4 (00:30→18:54)
[2020-11-17] MEDS: ALBUTEROL/IPRATROPIUM 3 ML NEB RESP TX SCH ×4 (01:37→18:08)
[2020-11-17 04:53] LABS: ABG Base Excess 7.6 MMOL/L (-2.5-2.5); ABG HCO3 31.4 MMOL/L (20-26); ABG Oxygen Saturation 99.5 % (95-100); ABG PCO2 45.1 MM HG (35-48); ABG PH 7.464 (7.35-7.45); ABG TCO2 28.8 MMOL/L (23-27)
[2020-11-17] MEDS: LEVOTHYROXINE 125 MCG TABLET PO SCH (06:17)
[2020-11-17 07:00] LABS: Basophils % 0.1 % (0.0-0.8); Hemoglobin 11.1 GM/DL (12.0-16.0); Immature Granulocytes % 0.7 %; Immature Granulocytes Absolute 0.08 #; Lymphocytes # 0.3 10*3/uL (1.4-4.0); Lymphocytes % 2.6 % (21.3-54.2); Mean Corpuscular HGB Conc 31.7 GM/DL (32-36); Mean Corpuscular Volume 92.6 FL (87-102); Mean Platelet Volume 13.2 FL (9.6-12.0); Monocytes % 3.7 % (1.7-12.7); NRBC # 0.03 10*3/uL; Neutrophils % 92.9 % (38.7-73.9); Platelet Count 169 T/CUMM (130-400); Red Blood Count 3.78 MC/CUMM (3.8-5.5); Red Cell Distribution Width 17.4 % (9.3-17.3); White Blood Count 11.3 T/CUMM (4-12)
[2020-11-17 07:11] LABS: Calcium 7.6 MG/DL (8.5-10.1); Osmolality,Calculated 329.3 MOS/KG (273-304); Potassium 3.8 MMOL/L (3.5-5.1)
[2020-11-17 07:25] LABS: Hypochromasia 1+; Lymphocytes 2 % (20-55); Microcytosis 1+; Platelet Estimate Adequate; Segmented Neutrophils 92 % (50-85); Total Cells Counted 100
[2020-11-17] MEDS ORDERED: FUROSEMIDE 40 MG/4 ML VIAL IV SCH (09:00)
[2020-11-17] MEDS: ASPIRIN 325 MG TABLET PO SCH (09:24)
[2020-11-17] MEDS: FERROUS SULFATE 325 MG TABLET PO SCH ×2 (09:24→18:53)
[2020-11-17] MEDS: amLODIPine 5 MG TABLET PO SCH (09:24)
[2020-11-17] MEDS: FAMOTIDINE 20 MG/2 ML VIAL IV SCH ×2 (09:25→20:52)
[2020-11-17] MEDS: INSULIN GLARGINE 100 UNIT/ML SUBCUT SCH (09:26)
[2020-11-17] MEDS: FLUCONAZOLE INJ 200 MG in PREMIX 1 EACH IV SCH (09:33)
[2020-11-17] MEDS ORDERED: amLODIPine 5 MG TABLET PO ONE (09:48)
[2020-11-17] MEDS: cefTRIAXone 1,000 MG in SYRINGE 1 EACH IV SCH (12:36)
[2020-11-17] MEDS: ENOXAPARIN 30 MG/0.3 ML SYRINGE SUBCUT SCH (14:56)
[2020-11-17] MEDS ORDERED: MIDAZOLAM 100 MG in SODIUM CHLORIDE 0.9% 80 ML IV PRN (16:55)
[2020-11-17] MEDS: EZETIMIBE 10 MG TABLET PO SCH (19:00)
[2020-11-17] MEDS: ATORVASTATIN 40 MG TABLET PO SCH (20:52)
[2020-11-18] MEDS: levETIRAcetam LIQUID 100 MG/ML 30 ML/BOTTLE PO SCH ×2 (00:16→11:46)
[2020-11-18] MEDS: methylPREDNISolone SOD SUC 40 MG/1 ML VIAL IV SCH ×2 (00:16→11:46)
[2020-11-18] MEDS: INSULIN REGULAR 100 UNIT/ML SUBCUT SCH ×4 (00:16→18:08)
[2020-11-18] MEDS: ALBUTEROL/IPRATROPIUM 3 ML NEB RESP TX SCH ×4 (00:35→19:37)
[2020-11-18 03:26] LABS: ABG Base Excess 6.2 MMOL/L (-2.5-2.5); ABG HCO3 30.1 MMOL/L (20-26); ABG Oxygen Saturation 98.8 % (95-100); ABG PH 7.484 (7.35-7.45); ABG TCO2 31.4 MMOL/L (23-27); Allen Test Positive; Pt O2 Delivery Device Ventilator
[2020-11-18 05:05] LABS: Basophils % 0.1 % (0.0-0.8); Hematocrit 36.8 VOL% (35.7-47.0); Hemoglobin 11.8 GM/DL (12.0-16.0); Immature Granulocytes % 1.1 %; Immature Granulocytes Absolute 0.13 #; Lymphocytes # 0.3 10*3/uL (1.4-4.0); Lymphocytes % 2.6 % (21.3-54.2); Mean Corpuscular HGB Conc 32.1 GM/DL (32-36); Mean Corpuscular Volume 92.5 FL (87-102); Mean Platelet Volume 13.4 FL (9.6-12.0); Monocytes % 3.5 % (1.7-12.7); Neutrophils % 92.7 % (38.7-73.9); Platelet Count 162 T/CUMM (130-400); Red Blood Count 3.98 MC/CUMM (3.8-5.5); Red Cell Distribution Width 17.4 % (9.3-17.3); White Blood Count 11.6 T/CUMM (4-12)
[2020-11-18 05:18] LABS: Calcium 7.3 MG/DL (8.5-10.1); Osmolality,Calculated 326.6 MOS/KG (273-304); Potassium 4.4 MMOL/L (3.5-5.1)
[2020-11-18 05:24] LABS: Lymphocytes 1 % (20-55); Nucleated Red Blood Cells 2 (0-5); Platelet Estimate Adequate; Segmented Neutrophils 96 % (50-85); Total Cells Counted 100
[2020-11-18 05:25] LABS: Hypochromasia Slight; Microcytosis Slight
[2020-11-18] MEDS: LEVOTHYROXINE 125 MCG TABLET PO SCH (06:21)
[2020-11-18] MEDS: ASPIRIN 325 MG TABLET PO SCH (08:48)
[2020-11-18] MEDS: amLODIPine 5 MG TABLET PO SCH (08:48)
[2020-11-18] MEDS: FAMOTIDINE 20 MG/2 ML VIAL IV SCH ×2 (08:48→21:14)
[2020-11-18] MEDS: FERROUS SULFATE 325 MG TABLET PO SCH ×2 (08:48→16:12)
[2020-11-18] MEDS: INSULIN GLARGINE 100 UNIT/ML SUBCUT SCH (09:27)
[2020-11-18] MEDS: FLUCONAZOLE INJ 200 MG in PREMIX 1 EACH IV SCH (10:20)
[2020-11-18] MEDS: cefTRIAXone 1,000 MG in SYRINGE 1 EACH IV SCH (11:48)
[2020-11-18] MEDS: ENOXAPARIN 30 MG/0.3 ML SYRINGE SUBCUT SCH (14:10)
[2020-11-18] MEDS: EZETIMIBE 10 MG TABLET PO SCH (17:12)
[2020-11-18] MEDS: ATORVASTATIN 40 MG TABLET PO SCH (21:14)
[2020-11-19] MEDS: ALBUTEROL/IPRATROPIUM 3 ML NEB RESP TX SCH ×4 (00:07→20:12)
[2020-11-19] MEDS: INSULIN REGULAR 100 UNIT/ML SUBCUT SCH ×4 (00:49→17:40)
[2020-11-19] MEDS: levETIRAcetam LIQUID 100 MG/ML 30 ML/BOTTLE PO SCH ×2 (01:13→11:23)
[2020-11-19] MEDS: methylPREDNISolone SOD SUC 40 MG/1 ML VIAL IV SCH ×2 (01:13→11:13)
[2020-11-19 04:55] LABS: Basophils % 0.1 % (0.0-0.8); Hematocrit 42.2 VOL% (35.7-47.0); Hemoglobin 13.1 GM/DL (12.0-16.0); Immature Granulocytes % 1.3 %; Immature Granulocytes Absolute 0.18 #; Lymphocytes # 0.3 10*3/uL (1.4-4.0); Lymphocytes % 2.3 % (21.3-54.2); Mean Corpuscular Volume 93.8 FL (87-102); Mean Platelet Volume 12.8 FL (9.6-12.0); Monocytes % 3.5 % (1.7-12.7); Neutrophils % 92.8 % (38.7-73.9); Platelet Count 182 T/CUMM (130-400); Red Cell Distribution Width 17.5 % (9.3-17.3); White Blood Count 14.1 T/CUMM (4-12)
[2020-11-19 05:19] LABS: Band Neutrophils 1 % (0-10); Hypochromasia 1+; Lymphocytes 1 % (20-55); Microcytosis 1+; Platelet Estimate Adequate; Segmented Neutrophils 93 % (50-85); Target Cells Few; Total Cells Counted 100
[2020-11-19 05:26] LABS: Calcium 7.9 MG/DL (8.5-10.1); Osmolality,Calculated 329.6 MOS/KG (273-304); Potassium 4.5 MMOL/L (3.5-5.1)
[2020-11-19] MEDS: LEVOTHYROXINE 125 MCG TABLET PO SCH (06:49)
[2020-11-19 08:09] LABS: ABG Base Excess 1.7 MMOL/L (-2.5-2.5); ABG HCO3 30.1 MMOL/L (20-26); ABG PCO2 65.6 MM HG (35-48); ABG PO2 94.6 MM HG (80-95); ABG TCO2 32.1 MMOL/L (23-27); Allen Test Positive; Pt O2 Delivery Device Venturi Mask
[2020-11-19] MEDS: ASPIRIN 325 MG TABLET PO SCH (08:55)
[2020-11-19] MEDS: FERROUS SULFATE 325 MG TABLET PO SCH ×2 (08:55→17:40)
[2020-11-19] MEDS: amLODIPine 5 MG TABLET PO SCH (08:55)
[2020-11-19] MEDS: FAMOTIDINE 20 MG/2 ML VIAL IV SCH ×2 (08:55→21:25)
[2020-11-19] MEDS: INSULIN GLARGINE 100 UNIT/ML SUBCUT SCH (08:59)
[2020-11-19] MEDS ORDERED: SODIUM CHLORIDE 0.9% 1,000 ML IV SCH (09:00)
[2020-11-19] MEDS: hydrALAZINE 25 MG TABLET PO SCH ×3 (10:19→21:27)
[2020-11-19] MEDS: FLUCONAZOLE INJ 200 MG in PREMIX 1 EACH IV SCH (10:20)
[2020-11-19] MEDS: cefTRIAXone 1,000 MG in SYRINGE 1 EACH IV SCH (11:15)
[2020-11-19] MEDS: ENOXAPARIN 30 MG/0.3 ML SYRINGE SUBCUT SCH (14:49)
[2020-11-19] MEDS: EZETIMIBE 10 MG TABLET PO SCH (17:40)
[2020-11-19] MEDS: ATORVASTATIN 40 MG TABLET PO SCH (21:25)
[2020-11-20] MEDS: levETIRAcetam LIQUID 100 MG/ML 30 ML/BOTTLE PO SCH ×2 (00:43→12:20)
[2020-11-20] MEDS: INSULIN REGULAR 100 UNIT/ML SUBCUT SCH ×4 (00:43→18:22)
[2020-11-20] MEDS: methylPREDNISolone SOD SUC 40 MG/1 ML VIAL IV SCH ×2 (00:43→12:20)
[2020-11-20] MEDS: ALBUTEROL/IPRATROPIUM 3 ML NEB RESP TX SCH ×4 (02:52→19:47)
[2020-11-20 04:52] LABS: Basophils % 0.2 % (0.0-0.8); Hematocrit 44.8 VOL% (35.7-47.0); Hemoglobin 14.3 GM/DL (12.0-16.0); Immature Granulocytes % 0.9 %; Immature Granulocytes Absolute 0.17 #; Lymphocytes # 0.4 10*3/uL (1.4-4.0); Lymphocytes % 1.9 % (21.3-54.2); Mean Corpuscular HGB Conc 31.9 GM/DL (32-36); Mean Corpuscular Volume 91.4 FL (87-102); Mean Platelet Volume 12.8 FL (9.6-12.0); Monocytes % 4.4 % (1.7-12.7); Neutrophils % 92.6 % (38.7-73.9); Platelet Count 184 T/CUMM (130-400); Red Cell Distribution Width 17.6 % (9.3-17.3); White Blood Count 18.4 T/CUMM (4-12)
[2020-11-20] MEDS: hydrALAZINE 20 MG/1 ML VIAL IV PRN (05:17)
[2020-11-20 05:20] LABS: Osmolality,Calculated 324.4 MOS/KG (273-304); Potassium 4.6 MMOL/L (3.5-5.1)
[2020-11-20 05:23] LABS: Hypochromasia 1+; Lymphocytes 1 % (20-55); Microcytosis 1+; Segmented Neutrophils 92 % (50-85); Total Cells Counted 100
[2020-11-20 05:24] LABS: Howell-Jolly Bodies Slight; Ovalocytes Slight; Platelet Estimate Adequate; Target Cells Slight
[2020-11-20] MEDS: LEVOTHYROXINE 125 MCG TABLET PO SCH (06:16)
[2020-11-20] MEDS: ASPIRIN 325 MG TABLET PO SCH (08:41)
[2020-11-20] MEDS: INSULIN GLARGINE 100 UNIT/ML SUBCUT SCH (08:41)
[2020-11-20] MEDS: amLODIPine 5 MG TABLET PO SCH (08:41)
[2020-11-20] MEDS: FAMOTIDINE 20 MG/2 ML VIAL IV SCH ×3 (08:41→20:32)
[2020-11-20] MEDS: FERROUS SULFATE 325 MG TABLET PO SCH ×2 (08:42→16:37)
[2020-11-20] MEDS: hydrALAZINE 25 MG TABLET PO SCH ×3 (08:42→20:32)
[2020-11-20] MEDS: FLUCONAZOLE INJ 200 MG in PREMIX 1 EACH IV SCH (10:26)
[2020-11-20] MEDS: ENOXAPARIN 30 MG/0.3 ML SYRINGE SUBCUT SCH (15:47)
[2020-11-20] MEDS: EZETIMIBE 10 MG TABLET PO SCH (18:40)
[2020-11-20] MEDS: ATORVASTATIN 40 MG TABLET PO SCH (20:31)
[2020-11-21] MEDS: methylPREDNISolone SOD SUC 40 MG/1 ML VIAL IV SCH ×2 (01:13→21:53)
[2020-11-21] MEDS: INSULIN REGULAR 100 UNIT/ML SUBCUT SCH ×4 (01:13→17:50)
[2020-11-21] MEDS: levETIRAcetam LIQUID 100 MG/ML 30 ML/BOTTLE PO SCH ×2 (01:13→12:34)
[2020-11-21] MEDS: ALBUTEROL/IPRATROPIUM 3 ML NEB RESP TX SCH ×4 (01:32→18:44)
[2020-11-21 04:37] LABS: Calcium 8.1 MG/DL (8.5-10.1); Osmolality,Calculated 321.7 MOS/KG (273-304); Potassium 4.7 MMOL/L (3.5-5.1)
[2020-11-21] MEDS: LEVOTHYROXINE 125 MCG TABLET PO SCH (06:12)
[2020-11-21] MEDS: FAMOTIDINE 20 MG/2 ML VIAL IV SCH ×2 (09:09→22:00)
[2020-11-21] MEDS: INSULIN GLARGINE 100 UNIT/ML SUBCUT SCH (09:09)
[2020-11-21] MEDS: ASPIRIN 325 MG TABLET PO SCH (09:10)
[2020-11-21] MEDS: amLODIPine 5 MG TABLET PO SCH (09:11)
[2020-11-21] MEDS: hydrALAZINE 25 MG TABLET PO SCH ×3 (09:11→21:52)
[2020-11-21] MEDS: FERROUS SULFATE 325 MG TABLET PO SCH ×2 (09:11→17:50)
[2020-11-21] MEDS: ENOXAPARIN 30 MG/0.3 ML SYRINGE SUBCUT SCH (14:30)
[2020-11-21] MEDS: EZETIMIBE 10 MG TABLET PO SCH (17:50)
[2020-11-21] MEDS: ATORVASTATIN 40 MG TABLET PO SCH (21:52)
[2020-11-22] MEDS: ALBUTEROL/IPRATROPIUM 3 ML NEB RESP TX SCH ×4 (00:12→19:33)
[2020-11-22] MEDS: INSULIN REGULAR 100 UNIT/ML SUBCUT SCH ×4 (02:56→18:16)
[2020-11-22] MEDS: levETIRAcetam LIQUID 100 MG/ML 30 ML/BOTTLE PO SCH ×3 (02:58→23:41)
[2020-11-22 06:34] LABS: Basophils % 0.1 % (0.0-0.8); Eosinophils % 0.1 % (0.00-10.9); Hematocrit 39.7 VOL% (35.7-47.0); Hemoglobin 12.5 GM/DL (12.0-16.0); Immature Granulocytes Absolute 0.15 #; Lymphocytes # 0.4 10*3/uL (1.4-4.0); Lymphocytes % 2.7 % (21.3-54.2); Mean Corpuscular HGB Conc 31.5 GM/DL (32-36); Mean Corpuscular Volume 91.7 FL (87-102); Mean Platelet Volume 13.9 FL (9.6-12.0); Monocytes % 4.2 % (1.7-12.7); Neutrophils % 91.9 % (38.7-73.9); Platelet Count 126 T/CUMM (130-400); Red Blood Count 4.33 MC/CUMM (3.8-5.5); Red Cell Distribution Width 17.8 % (9.3-17.3); White Blood Count 15.8 T/CUMM (4-12)
[2020-11-22 06:52] LABS: Calcium 7.5 MG/DL (8.5-10.1); Osmolality,Calculated 328.4 MOS/KG (273-304); Potassium 5.8 MMOL/L (3.5-5.1)
[2020-11-22 06:53] LABS: Hypochromasia Slight; Lymphocytes 3 % (20-55); Microcytosis Slight; Segmented Neutrophils 96 % (50-85); Total Cells Counted 100
[2020-11-22] MEDS: amLODIPine 5 MG TABLET PO SCH (08:50)
[2020-11-22] MEDS: hydrALAZINE 25 MG TABLET PO SCH ×3 (08:50→23:41)
[2020-11-22] MEDS: ASPIRIN 325 MG TABLET PO SCH (08:50)
[2020-11-22] MEDS: FAMOTIDINE 20 MG/2 ML VIAL IV SCH ×2 (08:51→22:33)
[2020-11-22] MEDS: FERROUS SULFATE 325 MG TABLET PO SCH ×2 (08:51→17:08)
[2020-11-22] MEDS: methylPREDNISolone SOD SUC 40 MG/1 ML VIAL IV SCH ×2 (08:51→22:29)
[2020-11-22] MEDS: INSULIN GLARGINE 100 UNIT/ML SUBCUT SCH (08:52)
[2020-11-22] MEDS: LEVOTHYROXINE 125 MCG TABLET PO SCH (08:54)
[2020-11-22] MEDS: ENOXAPARIN 30 MG/0.3 ML SYRINGE SUBCUT SCH (14:36)
[2020-11-22] MEDS: EZETIMIBE 10 MG TABLET PO SCH (17:08)
[2020-11-22] MEDS: ATORVASTATIN 40 MG TABLET PO SCH (23:41)
[2020-11-23] MEDS: ALBUTEROL/IPRATROPIUM 3 ML NEB RESP TX SCH ×4 (00:46→19:18)
[2020-11-23] MEDS: INSULIN REGULAR 100 UNIT/ML SUBCUT SCH ×4 (00:50→17:28)
[2020-11-23 05:38] LABS: Basophils % 0.1 % (0.0-0.8); Hematocrit 39.8 VOL% (35.7-47.0); Hemoglobin 12.6 GM/DL (12.0-16.0); Immature Granulocytes % 1.5 %; Immature Granulocytes Absolute 0.23 #; Lymphocytes # 0.3 10*3/uL (1.4-4.0); Lymphocytes % 2.1 % (21.3-54.2); Mean Corpuscular HGB Conc 31.7 GM/DL (32-36); Mean Corpuscular Volume 92.3 FL (87-102); Mean Platelet Volume 13.1 FL (9.6-12.0); Monocytes % 1.9 % (1.7-12.7); Neutrophils % 94.4 % (38.7-73.9); Red Blood Count 4.31 MC/CUMM (3.8-5.5); Red Cell Distribution Width 17.4 % (9.3-17.3); White Blood Count 15.4 T/CUMM (4-12)
[2020-11-23 05:46] LABS: Calcium 7.7 MG/DL (8.5-10.1); Potassium 5.7 MMOL/L (3.5-5.1)
[2020-11-23 05:53] LABS: Calcium 7.7 MG/DL (8.5-10.1); Potassium 5.7 MMOL/L (3.5-5.1)
[2020-11-23 06:02] LABS: Platelet Count 192 T/CUMM (130-400)
[2020-11-23 06:14] LABS: Howell-Jolly Bodies Slight; Hypochromasia 1+; Lymphocytes 2 % (20-55); Microcytosis 1+; Platelet Estimate Adequate; Segmented Neutrophils 97 % (50-85); Total Cells Counted 100
[2020-11-23] MEDS: LEVOTHYROXINE 125 MCG TABLET PO SCH (06:20)
[2020-11-23] MEDS ORDERED: INSULIN REGULAR 10 UNIT, CALCIUM GLUCONATE 1,000 MG in DEXTROSE 10% 250 ML IV ONE (08:00)
[2020-11-23] MEDS: FAMOTIDINE 20 MG/2 ML VIAL IV SCH ×2 (09:00→22:33)
[2020-11-23] MEDS: methylPREDNISolone SOD SUC 40 MG/1 ML VIAL IV SCH ×2 (09:04→22:33)
[2020-11-23] MEDS: FERROUS SULFATE 325 MG TABLET PO SCH ×2 (09:38→16:35)
[2020-11-23] MEDS: ASPIRIN 325 MG TABLET PO SCH (09:38)
[2020-11-23] MEDS: hydrALAZINE 25 MG TABLET PO SCH ×3 (09:38→22:32)
[2020-11-23] MEDS: amLODIPine 5 MG TABLET PO SCH (09:38)
[2020-11-23] MEDS: INSULIN GLARGINE 100 UNIT/ML SUBCUT SCH (09:39)
[2020-11-23] MEDS: levETIRAcetam LIQUID 100 MG/ML 30 ML/BOTTLE PO SCH (12:31)
[2020-11-23] MEDS: ENOXAPARIN 30 MG/0.3 ML SYRINGE SUBCUT SCH (14:19)
[2020-11-23] MEDS: EZETIMIBE 10 MG TABLET PO SCH (17:47)
[2020-11-23] MEDS: ATORVASTATIN 40 MG TABLET PO SCH (22:33)
[2020-11-24] MEDS: ALBUTEROL/IPRATROPIUM 3 ML NEB RESP TX SCH ×4 (00:15→19:20)
[2020-11-24] MEDS: levETIRAcetam LIQUID 100 MG/ML 30 ML/BOTTLE PO SCH ×3 (01:00→23:47)
[2020-11-24] MEDS: INSULIN REGULAR 100 UNIT/ML SUBCUT SCH ×5 (01:10→23:46)
[2020-11-24 04:18] LABS: Basophils % 0.1 % (0.0-0.8); Eosinophils # 0.1 10*3/uL (0.0-0.87); Eosinophils % 0.3 % (0.00-10.9); Hematocrit 38.5 VOL% (35.7-47.0); Hemoglobin 12.1 GM/DL (12.0-16.0); Immature Granulocytes % 1.2 %; Immature Granulocytes Absolute 0.22 #; Lymphocytes # 0.7 10*3/uL (1.4-4.0); Lymphocytes % 3.5 % (21.3-54.2); Mean Corpuscular HGB Conc 31.4 GM/DL (32-36); Mean Corpuscular Volume 93.2 FL (87-102); Monocytes % 4.8 % (1.7-12.7); Neutrophils % 90.1 % (38.7-73.9); Platelet Count 202 T/CUMM (130-400); Red Blood Count 4.13 MC/CUMM (3.8-5.5); Red Cell Distribution Width 17.2 % (9.3-17.3); White Blood Count 18.7 T/CUMM (4-12)
[2020-11-24 04:28] LABS: Calcium 7.9 MG/DL (8.5-10.1); Potassium 5.7 MMOL/L (3.5-5.1)
[2020-11-24 05:03] LABS: Anisocytosis 1+; Hypochromasia 2+; Lymphocytes 2 % (20-55); Macrocytosis 1+; Platelet Estimate Normal; Segmented Neutrophils 95 % (50-85); Total Cells Counted 100
[2020-11-24] MEDS: LEVOTHYROXINE 125 MCG TABLET PO SCH (06:09)
[2020-11-24] MEDS: FAMOTIDINE 20 MG/2 ML VIAL IV SCH ×2 (09:16→21:18)
[2020-11-24] MEDS: methylPREDNISolone SOD SUC 40 MG/1 ML VIAL IV SCH ×2 (09:18→21:20)
[2020-11-24] MEDS: ASPIRIN 325 MG TABLET PO SCH (09:38)
[2020-11-24] MEDS: FERROUS SULFATE 325 MG TABLET PO SCH ×2 (09:38→16:08)
[2020-11-24] MEDS: amLODIPine 5 MG TABLET PO SCH (09:38)
[2020-11-24] MEDS: INSULIN GLARGINE 100 UNIT/ML SUBCUT SCH (09:38)
[2020-11-24] MEDS: hydrALAZINE 25 MG TABLET PO SCH ×3 (09:38→21:21)
[2020-11-24] MEDS ORDERED: SODIUM POLYSTYRENE SULFATE 15 GM/60 ML BOTTLE PO ONE (10:36)
[2020-11-24] MEDS: ENOXAPARIN 30 MG/0.3 ML SYRINGE SUBCUT SCH (13:43)
[2020-11-24] MEDS: EZETIMIBE 10 MG TABLET PO SCH (17:02)
[2020-11-24] MEDS: ATORVASTATIN 40 MG TABLET PO SCH (21:22)
[2020-11-25] MEDS: ALBUTEROL/IPRATROPIUM 3 ML NEB RESP TX SCH ×4 (00:07→18:36)
[2020-11-25] MEDS: INSULIN REGULAR 100 UNIT/ML SUBCUT SCH ×3 (06:09→18:48)
[2020-11-25] MEDS: LEVOTHYROXINE 125 MCG TABLET PO SCH (06:10)
[2020-11-25 06:21] LABS: Basophils % 0.1 % (0.0-0.8); Hematocrit 37.9 VOL% (35.7-47.0); Hemoglobin 11.9 GM/DL (12.0-16.0); Immature Granulocytes Absolute 0.13 #; Lymphocytes # 0.4 10*3/uL (1.4-4.0); Lymphocytes % 3.1 % (21.3-54.2); Mean Corpuscular HGB Conc 31.4 GM/DL (32-36); Mean Corpuscular Volume 92.9 FL (87-102); Mean Platelet Volume 14.2 FL (9.6-12.0); Monocytes % 2.9 % (1.7-12.7); Neutrophils % 92.9 % (38.7-73.9); Red Blood Count 4.08 MC/CUMM (3.8-5.5); Red Cell Distribution Width 17.2 % (9.3-17.3)
[2020-11-25 06:28] LABS: Platelet Count 138 T/CUMM (130-400)
[2020-11-25 06:29] LABS: Calcium 8.1 MG/DL (8.5-10.1); Osmolality,Calculated 303.4 MOS/KG (273-304); Potassium 5.8 MMOL/L (3.5-5.1)
[2020-11-25 06:50] LABS: Hypochromasia 1+; Lymphocytes 1 % (20-55); Metamyelocytes 2 %; Segmented Neutrophils 91 % (50-85); Total Cells Counted 100
[2020-11-25 06:52] LABS: Howell-Jolly Bodies Slight; Microcytosis 1+; Pappenheimer Bodies Few
[2020-11-25 06:53] LABS: Acanthocytes Few; Target Cells Few
[2020-11-25] MEDS ORDERED: SODIUM POLYSTYRENE SULFATE 15 GM/60 ML BOTTLE PO ONE (07:23)
[2020-11-25] MEDS ORDERED: INSULIN REGULAR 10 UNIT, CALCIUM GLUCONATE 1,000 MG in DEXTROSE 10% 250 ML IV ONE (07:23)
[2020-11-25] MEDS: INSULIN GLARGINE 100 UNIT/ML SUBCUT SCH (11:34)
[2020-11-25] MEDS: amLODIPine 5 MG TABLET PO SCH (11:35)
[2020-11-25] MEDS: FAMOTIDINE 20 MG/2 ML VIAL IV SCH ×2 (11:35→21:15)
[2020-11-25] MEDS: ASPIRIN 325 MG TABLET PO SCH (11:35)
[2020-11-25] MEDS: hydrALAZINE 25 MG TABLET PO SCH ×3 (11:35→21:15)
[2020-11-25] MEDS: FERROUS SULFATE 325 MG TABLET PO SCH ×2 (11:35→18:48)
[2020-11-25] MEDS: methylPREDNISolone SOD SUC 40 MG/1 ML VIAL IV SCH (14:13)
[2020-11-25] MEDS: ENOXAPARIN 30 MG/0.3 ML SYRINGE SUBCUT SCH (14:57)
[2020-11-25] MEDS: levETIRAcetam LIQUID 100 MG/ML 30 ML/BOTTLE PO SCH (18:32)
[2020-11-25] MEDS: EZETIMIBE 10 MG TABLET PO SCH (18:48)
[2020-11-25] MEDS: ATORVASTATIN 40 MG TABLET PO SCH (21:15)
[2020-11-26] MEDS: levETIRAcetam LIQUID 100 MG/ML 30 ML/BOTTLE PO SCH ×3 (00:40→23:42)
[2020-11-26] MEDS: INSULIN REGULAR 100 UNIT/ML SUBCUT SCH ×4 (00:42→17:42)
[2020-11-26] MEDS: ALBUTEROL/IPRATROPIUM 3 ML NEB RESP TX SCH ×4 (01:32→18:05)
[2020-11-26 05:17] LABS: Basophils % 0.1 % (0.0-0.8); Eosinophils # 0.5 10*3/uL (0.0-0.87); Eosinophils % 2.9 % (0.00-10.9); Hematocrit 38.6 VOL% (35.7-47.0); Hemoglobin 11.8 GM/DL (12.0-16.0); Immature Granulocytes % 0.9 %; Immature Granulocytes Absolute 0.15 #; Lymphocytes # 2.3 10*3/uL (1.4-4.0); Lymphocytes % 13.6 % (21.3-54.2); Mean Corpuscular HGB Conc 30.6 GM/DL (32-36); Mean Platelet Volume 12.8 FL (9.6-12.0); Monocytes % 9.1 % (1.7-12.7); Neutrophils % 73.4 % (38.7-73.9); Platelet Count 234 T/CUMM (130-400); Red Blood Count 4.02 MC/CUMM (3.8-5.5); Red Cell Distribution Width 17.2 % (9.3-17.3); White Blood Count 16.7 T/CUMM (4-12)
[2020-11-26 05:36] LABS: Calcium 8.1 MG/DL (8.5-10.1); Osmolality,Calculated 309.1 MOS/KG (273-304); Potassium 4.5 MMOL/L (3.5-5.1)
[2020-11-26 05:38] LABS: Osmolality,Calculated 306.4 MOS/KG (273-304); Potassium 4.7 MMOL/L (3.5-5.1)
[2020-11-26] MEDS: LEVOTHYROXINE 125 MCG TABLET PO SCH (06:55)
[2020-11-26] MEDS: predniSONE 10 MG TABLET PO SCH (10:03)
[2020-11-26] MEDS: amLODIPine 5 MG TABLET PO SCH (10:03)
[2020-11-26] MEDS: FAMOTIDINE 20 MG/2 ML VIAL IV SCH (10:04)
[2020-11-26] MEDS: FERROUS SULFATE 325 MG TABLET PO SCH ×2 (10:04→17:13)
[2020-11-26] MEDS: ASPIRIN 325 MG TABLET PO SCH (10:15)
[2020-11-26] MEDS: hydrALAZINE 25 MG TABLET PO SCH ×3 (10:15→21:30)
[2020-11-26] MEDS: INSULIN GLARGINE 100 UNIT/ML SUBCUT SCH (13:06)
[2020-11-26] MEDS: ENOXAPARIN 30 MG/0.3 ML SYRINGE SUBCUT SCH (13:06)
[2020-11-26] MEDS: EZETIMIBE 10 MG TABLET PO SCH (17:13)
[2020-11-26] MEDS: ATORVASTATIN 40 MG TABLET PO SCH (21:30)
[2020-11-26] MEDS: FAMOTIDINE 20 MG TABLET PO SCH (21:31)
[2020-11-27] MEDS: INSULIN REGULAR 100 UNIT/ML SUBCUT SCH ×3 (00:26→11:57)
[2020-11-27] MEDS: ALBUTEROL/IPRATROPIUM 3 ML NEB RESP TX SCH ×3 (01:08→13:51)
[2020-11-27 04:43] LABS: Basophils % 0.2 % (0.0-0.8); Eosinophils # 0.5 10*3/uL (0.0-0.87); Eosinophils % 4.7 % (0.00-10.9); Hematocrit 34.2 VOL% (35.7-47.0); Hemoglobin 10.7 GM/DL (12.0-16.0); Immature Granulocytes % 0.4 %; Immature Granulocytes Absolute 0.05 #; Lymphocytes # 1.8 10*3/uL (1.4-4.0); Lymphocytes % 16.1 % (21.3-54.2); Mean Corpuscular HGB Conc 31.3 GM/DL (32-36); Mean Corpuscular Volume 94.7 FL (87-102); Mean Platelet Volume 12.4 FL (9.6-12.0); Neutrophils % 65.6 % (38.7-73.9); Platelet Count 215 T/CUMM (130-400); Red Blood Count 3.61 MC/CUMM (3.8-5.5); White Blood Count 11.3 T/CUMM (4-12)
[2020-11-27 05:11] LABS: Calcium 8.1 MG/DL (8.5-10.1); Potassium 4.5 MMOL/L (3.5-5.1)
[2020-11-27] MEDS: LEVOTHYROXINE 125 MCG TABLET PO SCH (06:19)
[2020-11-27] MEDS ORDERED: DEXTROSE 5% 1,000 ML IV SCH (08:00)
[2020-11-27] MEDS ORDERED: TUBERCULIN SKIN TEST 0.1 ML SYRINGE INTRADERM ONE (08:31)
[2020-11-27] MEDS: amLODIPine 5 MG TABLET PO SCH (09:47)
[2020-11-27] MEDS: ASPIRIN 325 MG TABLET PO SCH (09:49)
[2020-11-27] MEDS: FAMOTIDINE 20 MG TABLET PO SCH (09:53)
[2020-11-27] MEDS: FERROUS SULFATE 325 MG TABLET PO SCH (09:53)
[2020-11-27] MEDS: hydrALAZINE 25 MG TABLET PO SCH ×2 (09:53→15:25)
[2020-11-27] MEDS: predniSONE 10 MG TABLET PO SCH (09:54)
[2020-11-27] MEDS: INSULIN GLARGINE 100 UNIT/ML SUBCUT SCH (09:55)
[2020-11-27] MEDS: levETIRAcetam LIQUID 100 MG/ML 30 ML/BOTTLE PO SCH (12:55)
[2020-11-27] MEDS: ENOXAPARIN 30 MG/0.3 ML SYRINGE SUBCUT SCH (15:25)
[2020-11-27 16:22] VITALS: BP 127/55
== END 2020-11-27 16:15 | DRG 291 ==
LOC: N.ED 09:19 → N.EDINP 13:07 → SUATTDRO 13:07 → N.TELEN 15:48 → N.CC 11-12 09:38 → N.TELEN 11-21 13:00
PROVIDERS: ADMIT Internal Medicine; ATTEND Internal Medicine

== ENCOUNTER 2021-09-10 09:13 | Inpatient (IN) ==
[2021-09-10] MEDS ORDERED: cefTRIAXone 1,000 MG in SODIUM CHLORIDE 0.9% 100 ML IV STA (09:42)
[2021-09-10] MEDS ORDERED: SODIUM CHLORIDE 0.9% 1,000 ML IV STA ×2 (09:42→11:51)
[2021-09-10] MEDS ORDERED: ALBUTEROL/IPRATROPIUM 3 ML NEB RESP TX STA (09:43)
[2021-09-10 10:27] LABS: Basophils # 0.1 10*3/uL (0.0-0.2); Basophils % 0.4 % (0.0-0.8); Eosinophils # 0.1 10*3/uL (0.0-0.87); Eosinophils % 0.4 % (0.00-10.9); Hematocrit 42.1 VOL% (35.7-47.0); Hemoglobin 12.9 GM/DL (12.0-16.0); Immature Granulocytes % 2.3 %; Immature Granulocytes Absolute 0.48 #; Lymphocytes # 1.7 10*3/uL (1.4-4.0); Lymphocytes % 8.4 % (21.3-54.2); Mean Corpuscular HGB Conc 30.6 GM/DL (32-36); Mean Corpuscular Volume 99.1 FL (87-102); Monocytes % 6.1 % (1.7-12.7); NRBC # 0.18 10*3/uL; Neutrophils % 82.4 % (38.7-73.9); Platelet Count 205 T/CUMM (130-400); Red Blood Count 4.25 MC/CUMM (3.8-5.5); Red Cell Distribution Width 22.3 % (9.3-17.3); White Blood Count 20.8 T/CUMM (4-12)
[2021-09-10 10:28] LABS: Bacteria,Urine Many /HPF (Few); Bilirubin,Urine Negative (Negative); Blood, Urine Negative (Negative); Glucose,Urine (UA) Negative (Negative); Hyaline Casts,Urine 21 /LPF (0-3); Ketones,Urine 5 mg/dL (Negative); Mucus,Urine Occasional /LPF (Occasional); Nitrite,Urine Negative (Negative); Protein,Urine 30 MG/DL; RBC,Urine 10 /HPF (0-4); Squamous Epithelial Cell,Urine Occasional /HPF (0-10); Urine Appearance CLOUDY (Clear); Urine Color Amber (Yellow); Urine Specific Gravity 1.017 (1.001-1.035); Urine Urobilinogen < 2.0 EU/DL (<2.0)
[2021-09-10 10:44] LABS: Albumin 2.1 G/DL (3.4-5.0); Bilirubin,Total 0.6 MG/DL (0.20-1.00); Calcium 10.4 MG/DL (8.5-10.1); Eosinophils 1 % (0-10); Lymphocytes 4 % (20-55); Osmolality,Calculated 355.3 MOS/KG (273-304); Platelet Estimate Adequate; Potassium 3.1 MMOL/L (3.5-5.1); Segmented Neutrophils 84 % (50-85); Total Cells Counted 100
[2021-09-10 10:46] LABS: Howell-Jolly Bodies Slight; Macrocytosis Slight; Pappenheimer Bodies Few
[2021-09-10 11:36] LABS: Thyroid Stimulating Hormone 0.013 uIU/ml (0.358-3.74)
[2021-09-10] MEDS ORDERED: GLUCAGON 1 MG VIAL IM PRN (14:59)
[2021-09-10] MEDS ORDERED: hydrALAZINE 20 MG/1 ML VIAL IV PRN (14:59)
[2021-09-10] MEDS ORDERED: SODIUM CHLORIDE 0.9% 1,000 ML IV SCH (15:00)
[2021-09-10] MEDS ORDERED: DEXTROSE 10% 25 GM/250 ML BAG IV PRN (15:29)
[2021-09-10] MEDS: MEROPENEM 500 MG in SODIUM CHLORIDE 0.9% 100 ML IV SCH (15:58)
[2021-09-10] MEDS: POTASSIUM CHLORIDE RIDER 10 MEQ/100 ML PREMIX IV SCH ×2 (16:43→17:42)
[2021-09-10] MEDS: INSULIN LISPRO 100 UNIT/ML SUBCUT SCH ×2 (16:50→20:38)
[2021-09-10] MEDS ORDERED: VANCOMYCIN INJ 1,250 MG in SODIUM CHLORIDE 0.9% 250 ML IV STA (17:22)
[2021-09-10] MEDS: levETIRAcetam 500 MG TABLET PO SCH ×2 (20:38)
[2021-09-10] MEDS: ATORVASTATIN 40 MG TABLET PO SCH ×2 (20:38)
[2021-09-10] MEDS: HEPARIN 5,000 UNIT/1 ML VIAL SUBCUT SCH (20:38)
[2021-09-11] MEDS: MEROPENEM 500 MG in SODIUM CHLORIDE 0.9% 100 ML IV SCH ×2 (04:00→16:59)
[2021-09-11 05:44] LABS: Basophils # 0.1 10*3/uL (0.0-0.2); Basophils % 0.3 % (0.0-0.8); Hematocrit 32.8 VOL% (35.7-47.0); Immature Granulocytes % 4.4 %; Immature Granulocytes Absolute 1.01 #; Lymphocytes # 1.4 10*3/uL (1.4-4.0); Mean Corpuscular HGB Conc 30.2 GM/DL (32-36); Mean Corpuscular Volume 102.8 FL (87-102); Mean Platelet Volume 13.8 FL (9.6-12.0); Monocytes % 5.7 % (1.7-12.7); NRBC # 0.16 10*3/uL; Neutrophils % 83.6 % (38.7-73.9); Platelet Count 174 T/CUMM (130-400); Red Cell Distribution Width 22.3 % (9.3-17.3)
[2021-09-11 05:48] LABS: Hemoglobin 9.9 GM/DL (12.0-16.0); Red Blood Count 3.19 MC/CUMM (3.8-5.5)
[2021-09-11 06:14] LABS: Band Neutrophils 2 % (0-10); Lymphocytes 6 % (20-55); Nucleated Red Blood Cells 1 (0-5); Platelet Estimate Normal; Segmented Neutrophils 89 % (50-85); Total Cells Counted 100
[2021-09-11 06:15] LABS: Hypochromia Slight
[2021-09-11] MEDS ORDERED: SODIUM CHLORIDE 0.9% 500 ML IV ONE (08:26)
[2021-09-11 08:41] LABS: % Iron Saturation 24.8 % (18-50)
[2021-09-11 08:47] LABS: Folate > 24.00 NG/ML (5.38-24.0); Vitamin B12 562 PG/ML (211-911)
[2021-09-11] MEDS ORDERED: VANCOMYCIN INJ 1,000 MG in SODIUM CHLORIDE 0.9% 250 ML IV PRN (09:00)
[2021-09-11] MEDS ORDERED: VANCOMYCIN INJ 1,250 MG in SODIUM CHLORIDE 0.9% 250 ML IV STA (09:09)
[2021-09-11] MEDS: HEPARIN 5,000 UNIT/1 ML VIAL SUBCUT SCH ×2 (09:22→21:05)
[2021-09-11] MEDS: INSULIN LISPRO 100 UNIT/ML SUBCUT SCH ×4 (09:32→21:05)
[2021-09-11 10:38] LABS: Calcium 8.6 MG/DL (8.5-10.1); Osmolality,Calculated 350.6 MOS/KG (273-304); Potassium 3.6 MMOL/L (3.5-5.1)
[2021-09-11] MEDS ORDERED: DEXTROSE 5% NACL 0.45% 1,000 ML IV SCH (11:30)
[2021-09-11] MEDS: DEXTROSE 5% 1,000 ML IV SCH ×2 (12:30→23:53)
[2021-09-11] MEDS ORDERED: SODIUM CHLORIDE 23.4% CONC INJ 38.5 MEQ in STERILE WATER INJ 1,000 ML IV SCH (13:00)
[2021-09-11] MEDS ORDERED: STERILE WATER IV SCH (13:00)
[2021-09-11] MEDS ORDERED: SODIUM CHLORIDE IV SCH (13:00)
[2021-09-11] MEDS: SODIUM CHLORIDE 0.9% 1,000 ML IV SCH ×2 (13:26→15:32)
[2021-09-11] MEDS: ASPIRIN 325 MG TABLET PO SCH (15:30)
[2021-09-11] MEDS: levETIRAcetam 500 MG TABLET PO SCH (15:33)
[2021-09-11] MEDS: ATORVASTATIN 40 MG TABLET PO SCH (21:05)
[2021-09-12 06:43] LABS: Basophils # 0.1 10*3/uL (0.0-0.2); Basophils % 0.4 % (0.0-0.8); Eosinophils # 0.2 10*3/uL (0.0-0.87); Eosinophils % 0.8 % (0.00-10.9); Hematocrit 28.3 VOL% (35.7-47.0); Hemoglobin 8.8 GM/DL (12.0-16.0); Immature Granulocytes % 3.8 %; Immature Granulocytes Absolute 1.08 #; Lymphocytes # 2.8 10*3/uL (1.4-4.0); Lymphocytes % 9.9 % (21.3-54.2); Mean Corpuscular HGB Conc 31.1 GM/DL (32-36); Mean Corpuscular Volume 100.4 FL (87-102); Mean Platelet Volume 13.4 FL (9.6-12.0); NRBC # 0.61 10*3/uL; Neutrophils % 81.1 % (38.7-73.9); Platelet Count 170 T/CUMM (130-400); Red Blood Count 2.82 MC/CUMM (3.8-5.5); Red Cell Distribution Width 22.4 % (9.3-17.3); White Blood Count 28.5 T/CUMM (4-12)
[2021-09-12 06:56] LABS: Calcium 7.8 MG/DL (8.5-10.1); Osmolality,Calculated 338.6 MOS/KG (273-304); Potassium 2.8 MMOL/L (3.5-5.1)
[2021-09-12 07:10] LABS: Acanthocytes Few; Band Neutrophils 3 % (0-10); Eosinophils 1 % (0-10); Hypochromia Slight; Lymphocytes 5 % (20-55); Myelocytes 1 %; Nucleated Red Blood Cells 1 (0-5); Segmented Neutrophils 88 % (50-85); Target Cells Few; Total Cells Counted 100
[2021-09-12 07:11] LABS: Anisocytosis 1+; Burr Cells Slight; Ovalocytes Slight
[2021-09-12 07:12] LABS: Pappenheimer Bodies Few; Platelet Estimate Adequate
[2021-09-12] MEDS ORDERED: POTASSIUM CHLORIDE 20 MEQ TABLET PO PRN (08:14)
[2021-09-12] MEDS: INSULIN LISPRO 100 UNIT/ML SUBCUT SCH ×4 (08:55→21:11)
[2021-09-12] MEDS: HEPARIN 5,000 UNIT/1 ML VIAL SUBCUT SCH ×2 (10:15→21:11)
[2021-09-12] MEDS: DEXTROSE 5% 1,000 ML IV SCH ×2 (10:55→16:41)
[2021-09-12] MEDS: MEROPENEM 500 MG in SODIUM CHLORIDE 0.9% 100 ML IV SCH ×2 (10:55→16:23)
[2021-09-12] MEDS: ASPIRIN 325 MG TABLET PO SCH (10:56)
[2021-09-12] MEDS ORDERED: VANCOMYCIN INJ 1,000 MG in SODIUM CHLORIDE 0.9% 250 ML IV PRN (15:00)
[2021-09-12] MEDS: ATORVASTATIN 40 MG TABLET PO SCH (21:11)
[2021-09-13 05:36] LABS: Basophils # 0.1 10*3/uL (0.0-0.2); Basophils % 0.3 % (0.0-0.8); Eosinophils # 0.3 10*3/uL (0.0-0.87); Eosinophils % 1.2 % (0.00-10.9); Hematocrit 26.7 VOL% (35.7-47.0); Hemoglobin 8.4 GM/DL (12.0-16.0); Immature Granulocytes % 4.9 %; Immature Granulocytes Absolute 1.29 #; Lymphocytes # 2.8 10*3/uL (1.4-4.0); Lymphocytes % 10.7 % (21.3-54.2); Mean Corpuscular HGB Conc 31.5 GM/DL (32-36); Mean Corpuscular Volume 97.4 FL (87-102); Mean Platelet Volume 13.3 FL (9.6-12.0); Monocytes % 2.8 % (1.7-12.7); Neutrophils % 80.1 % (38.7-73.9); Platelet Count 167 T/CUMM (130-400); Red Blood Count 2.74 MC/CUMM (3.8-5.5); Red Cell Distribution Width 22.3 % (9.3-17.3); White Blood Count 26.5 T/CUMM (4-12)
[2021-09-13 05:57] LABS: Band Neutrophils 1 % (0-10); Hypochromia 1+; Lymphocytes 5 % (20-55); Microcytosis 1+; Nucleated Red Blood Cells 3 (0-5); Platelet Estimate Adequate; Segmented Neutrophils 91 % (50-85); Total Cells Counted 100
[2021-09-13 06:03] LABS: Calcium 7.6 MG/DL (8.5-10.1)
[2021-09-13 06:06] LABS: Potassium 2.3 MMOL/L (3.5-5.1)
[2021-09-13] MEDS: MEROPENEM 500 MG in SODIUM CHLORIDE 0.9% 100 ML IV SCH ×2 (06:22→14:59)
[2021-09-13] MEDS ORDERED: MAGNESIUM SULF RIDER 2 GM/50 ML PREMIX IV ONE (07:52)
[2021-09-13] MEDS ORDERED: POTASSIUM CHLORIDE 20 MEQ PACK PO SCH (08:00)
[2021-09-13] MEDS: HEPARIN 5,000 UNIT/1 ML VIAL SUBCUT SCH ×2 (08:10→20:56)
[2021-09-13] MEDS: INSULIN LISPRO 100 UNIT/ML SUBCUT SCH ×4 (08:11→21:14)
[2021-09-13] MEDS: ASPIRIN 325 MG TABLET PO SCH (08:12)
[2021-09-13] MEDS: FERROUS SULFATE 325 MG TABLET PO SCH ×2 (09:44→16:32)
[2021-09-13] MEDS: POTASSIUM BICARB EFFERVESCENT 20 MEQ TAB.EFF PO SCH ×3 (09:44→16:32)
[2021-09-13] MEDS ORDERED: cefTRIAXone 1,000 MG in SODIUM CHLORIDE 0.9% 100 ML IV SCH (10:30)
[2021-09-13] MEDS: ZINC OXIDE PASTE 113 GM TUBE TOP SCH ×2 (16:32→21:15)
[2021-09-13 16:58] LABS: Calcium 7.5 MG/DL (8.5-10.1); Osmolality,Calculated 305.8 MOS/KG (273-304); Potassium 2.7 MMOL/L (3.5-5.1)
[2021-09-13] MEDS: DEXTROSE 5% 1,000 ML IV SCH (18:28)
[2021-09-13] MEDS: ATORVASTATIN 40 MG TABLET PO SCH (20:56)
[2021-09-13] MEDS: levETIRAcetam 500 MG TABLET PO SCH (20:56)
[2021-09-14] MEDS: MEROPENEM 500 MG in SODIUM CHLORIDE 0.9% 100 ML IV SCH ×2 (02:22→16:11)
[2021-09-14 08:09] LABS: Basophils # 0.1 10*3/uL (0.0-0.2); Basophils % 0.4 % (0.0-0.8); Eosinophils # 0.5 10*3/uL (0.0-0.87); Hematocrit 30.2 VOL% (35.7-47.0); Hemoglobin 9.6 GM/DL (12.0-16.0); Immature Granulocytes % 4.8 %; Lymphocytes # 2.6 10*3/uL (1.4-4.0); Lymphocytes % 11.3 % (21.3-54.2); Mean Corpuscular HGB Conc 31.8 GM/DL (32-36); Mean Corpuscular Volume 96.8 FL (87-102); Mean Platelet Volume 13.6 FL (9.6-12.0); Monocytes % 3.5 % (1.7-12.7); NRBC # 0.68 10*3/uL; Platelet Count 163 T/CUMM (130-400); Red Blood Count 3.12 MC/CUMM (3.8-5.5); Red Cell Distribution Width 22.7 % (9.3-17.3); White Blood Count 22.9 T/CUMM (4-12)
[2021-09-14 08:17] LABS: Calcium 7.9 MG/DL (8.5-10.1); Osmolality,Calculated 308.6 MOS/KG (273-304); Potassium 2.9 MMOL/L (3.5-5.1)
[2021-09-14] MEDS: INSULIN LISPRO 100 UNIT/ML SUBCUT SCH ×4 (08:21→21:38)
[2021-09-14] MEDS: ASPIRIN 325 MG TABLET PO SCH (08:21)
[2021-09-14] MEDS: levETIRAcetam 500 MG TABLET PO SCH ×2 (08:21→21:37)
[2021-09-14] MEDS: FERROUS SULFATE 325 MG TABLET PO SCH ×2 (08:21→17:10)
[2021-09-14] MEDS: ZINC OXIDE PASTE 113 GM TUBE TOP SCH ×2 (08:21→21:39)
[2021-09-14] MEDS: HEPARIN 5,000 UNIT/1 ML VIAL SUBCUT SCH ×2 (08:21→21:37)
[2021-09-14 08:22] LABS: Eosinophils 1 % (0-10); Hypochromia 1+; Lymphocytes 9 % (20-55); Microcytosis 1+; Nucleated Red Blood Cells 5 (0-5); Platelet Estimate Adequate; Segmented Neutrophils 88 % (50-85); Total Cells Counted 100
[2021-09-14] MEDS: POTASSIUM CHLORIDE RIDER 10 MEQ/100 ML PREMIX IV SCH ×3 (14:50→18:55)
[2021-09-14] MEDS ORDERED: FUROSEMIDE 40 MG/4 ML VIAL IV ONE (16:36)
[2021-09-14] MEDS: POTASSIUM BICARB EFFERVESCENT 20 MEQ TAB.EFF PO SCH (17:32)
[2021-09-14] MEDS: ATORVASTATIN 40 MG TABLET PO SCH (21:37)
[2021-09-15] MEDS: MEROPENEM 500 MG in SODIUM CHLORIDE 0.9% 100 ML IV SCH (03:27)
[2021-09-15 08:09] LABS: Basophils # 0.1 10*3/uL (0.0-0.2); Basophils % 0.4 % (0.0-0.8); Eosinophils # 0.4 10*3/uL (0.0-0.87); Eosinophils % 2.4 % (0.00-10.9); Hematocrit 29.1 VOL% (35.7-47.0); Hemoglobin 9.2 GM/DL (12.0-16.0); Immature Granulocytes Absolute 0.83 #; Lymphocytes # 2.3 10*3/uL (1.4-4.0); Lymphocytes % 13.8 % (21.3-54.2); Mean Corpuscular HGB Conc 31.6 GM/DL (32-36); Mean Corpuscular Volume 96.7 FL (87-102); Mean Platelet Volume 12.9 FL (9.6-12.0); Monocytes % 3.9 % (1.7-12.7); NRBC # 0.17 10*3/uL; Neutrophils % 74.5 % (38.7-73.9); Platelet Count 197 T/CUMM (130-400); Red Blood Count 3.01 MC/CUMM (3.8-5.5); Red Cell Distribution Width 22.6 % (9.3-17.3); White Blood Count 16.7 T/CUMM (4-12)
[2021-09-15 08:28] LABS: Calcium 7.5 MG/DL (8.5-10.1); Osmolality,Calculated 314.1 MOS/KG (273-304); Potassium 3.2 MMOL/L (3.5-5.1)
[2021-09-15 08:29] LABS: Acanthocytes Few; Burr Cells Slight; Eosinophils 1 % (0-10); Hypochromia 1+; Lymphocytes 11 % (20-55); Metamyelocytes 2 %; Myelocytes 1 %; Pappenheimer Bodies Slight; Polychromasia Slight; Segmented Neutrophils 81 % (50-85); Total Cells Counted 100
[2021-09-15 08:32] LABS: Microcytosis 1+; Platelet Estimate Adequate; Target Cells Slight
[2021-09-15] MEDS ORDERED: POTASSIUM CHLORIDE RIDER 10 MEQ/100 ML PREMIX IV SCH (09:00)
[2021-09-15] MEDS: ASPIRIN 325 MG TABLET PO SCH (09:19)
[2021-09-15] MEDS: FERROUS SULFATE 325 MG TABLET PO SCH (09:19)
[2021-09-15] MEDS: HEPARIN 5,000 UNIT/1 ML VIAL SUBCUT SCH (09:19)
[2021-09-15] MEDS: levETIRAcetam 500 MG TABLET PO SCH (09:19)
[2021-09-15] MEDS: ZINC OXIDE PASTE 113 GM TUBE TOP SCH (09:29)
[2021-09-15] MEDS: INSULIN LISPRO 100 UNIT/ML SUBCUT SCH ×2 (09:29→13:07)
[2021-09-15] MEDS ORDERED: DEXTROSE 5% 1,000 ML IV SCH (11:00)
[2021-09-15] MEDS ORDERED: POTASSIUM CHLORIDE 20 MEQ TABLET PO ONE (11:00)
[2021-09-15 12:12] VITALS: BP 92/49
[2021-09-15 14:08] LABS: Calcium 7.6 MG/DL (8.5-10.1); Osmolality,Calculated 311.4 MOS/KG (273-304); Potassium 3.2 MMOL/L (3.5-5.1)
== END 2021-09-15 14:30 | DRG 871 ==
LOC: EDBD → EDUNIT# → N.ED 09:13 → N.EDINP 14:59 → SUATTDRO 14:59 → N.EDINP 17:27 → N.5E 17:40
PROVIDERS: ADMIT Internal Medicine; ATTEND Internal Medicine